=== PATIENT | female | born 1955 | race Caucasian/White ===

== ENCOUNTER → 2018-07-29 | Day surgery (SDC) | payer MEDICAID | LOC: FIMAGING 08:20 | PROVIDERS: ATTEND Nurse Practitioner | PROC: 02HV33Z Insertion of Infusion Device into Superior Vena Cava, Percutaneous Approach (ICD-10-PCS; principal; 2018-07-29) | DX: C23 Malignant neoplasm of gallbladder (principal); C78.1 Secondary malignant neoplasm of mediastinum; C79.51 Secondary malignant neoplasm of bone | CPT/HCPCS: 36569; 77001; C1751 ==

== ENCOUNTER 2018-08-01 12:25 | Inpatient (IN) | payer MEDICAID ==
--- NOTE | 2018-08-01 13:16 | EDPHY ---
H & P Stated Complaint: Faisal admits [facility] for tx GB cancer;chronic BLE edema;lasix dc 'd Time Seen by Provider: 08/01/18 13:16 HPI/ROS: HPI CHIEF COMPLAINT: Worsening anasarca. HISTORY OF PRESENT ILLNESS: Patient is 62-year-old female, presents emergency room progressively worsening shortness of breath, bilateral lower extremity swelling, and abdominal swelling. Patient recently diagnosed with retaining fluids. She was recently at [facility] for what appears she states his right-sided heart failure. Addition she states her kidneys are not working appropriately. [place] [facility] [place]bladder [place] is followed by Dr. Middleton. She was on Lasix but stopped that 2 days ago. Past Medical History: Pulmonary embolism, gallbladder cancer kidney disease on Lovenox. Past Surgical History: Cholecystectomy Social History: Denies drugs alcohol tobacco. Family History: Noncontributory ROS REVIEW OF SYSTEMS: 10 Systems were reviewed and negative with the exception of the elements mentioned in the history of present illness. Exam Constitutional nontoxic triage nursing summary reviewed, vital signs reviewed, awake/alert. Eyes normal conjunctivae and sclera, EOMI, PERRLA. HENT normal inspection, atraumatic, moist mucus membranes, no epistaxis, neck supple/ no meningismus, no raccoon eyes. Respiratory clear to auscultation bilaterally, normal breath sounds, no respiratory distress, no wheezing. Cardiovascular rate normal, regular rhythm, no murmur, no edema, distal pulses normal. Gastrointestinal anasarca on abdomen soft, non-tender, no rebound, no guarding , normal bowel sounds, no distension, no pulsatile mass. Genitourinary no CVA tenderness. Musculoskeletal bilateral lower extremity significant pitting edema, anasarca no midline vertebral tenderness, full range of motion, no calf swelling, no tenderness of extremities, no meningismus, good pulses, neurovascularly intact. Skin pink, warm, & dry, no rash, skin atraumatic. Neurologic awake, alert and oriented x 3, AAOx3, moves all 4 extremities equally, motor intact, sensory intact, CN II-XII intact, normal cerebellar, normal vision, normal speech. Psychiatric normal mood/affect. Heme/Lymph/Immune no lymphadenopathy. Differential Diagnosis: Includes but is not limited to in a particular order renal failure, peripheral edema, volume overload, anasarca, heart failure Medical Decision Making: Plan for this patient IV establishment hold IV fluids , check electrolytes, check kidney function, additionally will admit to the hospital for anasarca. Re-evaluation: Blood work reviewed low sodium 123, additionally creatinine 2.2, additionally elevated BNP. EKG interpretation by me on record in [employer] system. Impression time of EK, sinus tach 118 left atrial enlargement, T-wave abnormality [address] in [address]VL[address] Sp[address] with [address]. Chatman agrees to admit. Patient blood work reviewed shows volume overload, elevated BNP, elevated creatinine, low sodium. Chest x-ray concerning for left lower lobe pneumonia no evidence of pulmonary edema. Source: Patient - Personal History Current Tetanus Diphtheria and Acellular Pertussis (TDAP): Yes - Medical/Surgical History Hx Cardiac Disease: Yes Other PMH: Ca GB. CHF. hyponatremia. chronic lower extremity edema - Social History Smoking Status: Never smoked Constitutional: Initial Vital Signs Temperature (C) 36.8 C 08/01/18 12:26 Heart Rate 121 H 08/01/18 12:26 Respiratory Rate 18 08/01/18 12:26 Blood Pressure 104/89 H 08/01/18 12:26 O2 Sat (%) 96 08/01/18 12:26 O2 Delivery Mode Room Air Allergies/Adverse Reactions: Sulfa (Sulfonamide Antibiotics) Allergy (Severe, Verified 08/01/18 12:35) "My body shuts down" Home Medications: Medication Instructions Recorded Cyclobenzaprine [Flexeril 10 MG 10 mg PO 08/01/18 (*)] Enoxaparin [Lovenox 80 MG (*)] 80 mg SQ Q12H 08/01/18 OLANZapine [ZyPREXA 2.5 mg (*)] 2.5 mg PO 08/01/18 oxyCODONE IR [Oxycodone Ir (*)] 5 mg PO 08/01/18 Medical Decision Making - Diagnostics Imaging Results: Imaging Impressions Chest X-Ray 08/01/18 13:24 Impression: 1. Left lower lobe pneumonia. 2. No congestive heart failure. 3. Recommend follow-up until clear. - Data Points Laboratory Results: Laboratory Results 08/01/18 13:40 08/01/18 13:40 08/01/18 08/01/18 08/01/18 13:49 13:40 13:40 WBC RBC Hgb Hct MCV MCH MCHC RDW Plt Count MPV Neut % (Auto) Lymph % (Auto) Dixie % (Auto) Eos % (Auto) Baso % (Auto) Nucleat RBC Rel Count Absolute Neuts (auto) Absolute Lymphs (auto) Absolute Monos (auto) Absolute Eos (auto) Absolute Basos (auto) Absolute Nucleated RBC Immature Gran % Seg Neutrophils % Band Neutrophils % Lymphocytes % Monocytes % Eosinophils % Basophils % Metamyelocytes % Myelocytes % Promyelocytes % Blast Cells % Immature Gran # Absolute Seg Neuts Absolute Band Neuts Absolute Lymphocytes Absolute Monocytes Absolute Eosinophils Absolute Basophils Absolute Metamyelocyte Absolute Myelocytes Absolute Promyelocytes Absolute Plasma Cells Nucleated RBCs RBC/WBC/PLT Morphology Absolute Blast Cells Plasma Cells % Platelet Estimate PT 22.2 SEC H SEC (12.0-15.0) INR 1.94 H (0.83-1.16) APTT 52.2 SEC H SEC (23.0-38.0) Sodium 123 mEq/L L mEq/L (135-145) Potassium 4.5 mEq/L mEq/L (3.3-5.0) Chloride 93 mEq/L L mEq/L (97-110) Carbon Dioxide 20 mEq/l L mEq/l (22-31) Anion Gap 10 mEq/L mEq/L (8-16) BUN 49 mg/dL H mg/dL (7-23) Creatinine 2.2 mg/dL H mg/dL (0.6-1.0) Estimated GFR 23 Glucose 87 mg/dL mg/dL (70-100) Calcium 7.7 mg/dL L mg/dL (8.5-10.4) Magnesium 2.7 mg/dL H mg/dL (1.6-2.3) Total Bilirubin 0.9 mg/dL mg/dL (0.1-1.4) Conjugated Bilirubin 0.5 mg/dL mg/dL (0.0-0.5) Unconjugated Bilirubin 0.4 mg/dL mg/dL (0.0-1.1) AST 106 IU/L H IU/L (14-46) ALT 60 IU/L H IU/L (9-52) Alkaline Phosphatase 585 IU/L H IU/L (38-126) POC Troponin I 0.02 ng/mL ng/mL (0.00-0.08) NT-Pro-B Natriuret Pep 1320 pg/mL H pg/mL (0-125) Total Protein 5.4 g/dL L g/dL (6.3-8.2) Albumin 2.5 g/dL L g/dL (3.5-5.0) Lipase 277 IU/L IU/L (23-300) 08/01/18 13:40 WBC 8.53 10^3/uL 10^3/uL (3.80-9.50) RBC 4.53 10^6/uL 10^6/uL (4.18-5.33) Hgb 12.6 g/dL g/dL (12.6-16.3) Hct 38.6 % % (38.0-47.0) MCV 85.2 fL fL (81.5-99.8) MCH 27.8 pg L pg (27.9-34.1) MCHC 32.6 g/dL g/dL (32.4-36.7) RDW 16.0 % H % (11.5-15.2) Plt Count 283 10^3/uL 10^3/uL (150-400) MPV 7.8 fL L fL (8.7-11.7) Neut % (Auto) Not Reported Lymph % (Auto) Not Reported Dixie % (Auto) Not Reported Eos % (Auto) Not Reported Baso % (Auto) Not Reported Nucleat RBC Rel Count Not Reported Absolute Neuts (auto) Not Reported Absolute Lymphs (auto) Not Reported Absolute Monos (auto) Not Reported Absolute Eos (auto) Not Reported Absolute Basos (auto) Not Reported Absolute Nucleated RBC Not Reported Immature Gran % Not Reported Seg Neutrophils % 97.0 % % Band Neutrophils % 1.0 % % Lymphocytes % 1.0 % % Monocytes % 1.0 % % Eosinophils % 0.0 % % Basophils % 0.0 % % Metamyelocytes % 0.0 % % Myelocytes % 0.0 % % Promyelocytes % 0.0 % % Blast Cells % 0.0 % % Immature Gran # Not Reported Absolute Seg Neuts 8.27 10^/uL H 10^/uL (1.70-6.50) Absolute Band Neuts 0.09 10^3/uL 10^3/uL (0.00-0.70) Absolute Lymphocytes 0.09 10^3/uL L 10^3/uL (1.00-3.00) Absolute Monocytes 0.09 10^3/uL L 10^3/uL (0.30-0.80) Absolute Eosinophils 0.00 10^3/uL L 10^3/uL (0.03-0.40) Absolute Basophils 0.00 10^3/uL L 10^3/uL (0.02-0.10) Absolute Metamyelocyte 0.00 10^3/mL 10^3/mL (0.00-0.00) Absolute Myelocytes 0.00 10^3/mL 10^3/mL (0.00-0.00) Absolute Promyelocytes 0.00 10^3/uL 10^3/uL (0.00-0.00) Absolute Plasma Cells 0.00 10^3/uL 10^3/uL (0.00-0.00) Nucleated RBCs 0 /100 WBC /100 WBC (0-0) RBC/WBC/PLT Morphology NORMAL (NORMAL) Absolute Blast Cells 0.00 10^3/uL 10^3/uL (0.00-0.00) Plasma Cells % 0.0 % % Platelet Estimate ADEQUATE (ADEQ) PT INR APTT Sodium Potassium Chloride Carbon Dioxide Anion Gap BUN Creatinine Estimated GFR Glucose Calcium Magnesium Total Bilirubin Conjugated Bilirubin Unconjugated Bilirubin AST ALT Alkaline Phosphatase POC Troponin I NT-Pro-B Natriuret Pep Total Protein Albumin Lipase Medications Given: Discontinued Medications Fentanyl (Sublimaze) 50 mcg IVP EDNOW ONE Stop: 08/01/18 14:11 Last Admin: 08/01/18 14:13 Dose: 50 mcg Point of Care Test Results: Chemistry 08/01/18 13:49 POC Troponin I 0.02 ng/mL ng/mL (0.00-0.08) Departure - Departure Disposition: [facility] Inpatient Acute Clinical Impression: Volume overload, Anasarca, Left lower lobe pneumonia Condition: Fair Referrals: NONE *PRIMARY CARE P,. [Primary Care Provider] - As per Instructions
[2018-08-01 13:47] LABS: PLATELET COUNT 283 10^3/uL (150-400)
[2018-08-01 13:56] LABS: INR 1.94 (0.83-1.16); PROTIME(PATIENT) 22.2 SEC (12.0-15.0)
[2018-08-01] MEDS ORDERED: fentaNYL 100 MCG/2 ML INJ IVP ONE (14:10)
[2018-08-01] MEDS ORDERED: ACETAMINOPHEN 325 MG TAB PO PRN (16:02)
[2018-08-01] MEDS ORDERED: ONDANSETRON DISINTEGRATING 4 MG TAB PO PRN (16:02)
[2018-08-01] MEDS ORDERED: ONDANSETRON 4 MG/2 ML VIAL IVP PRN (16:02)
[2018-08-01] MEDS ORDERED: HYDROCODONE/APAP 5/325 TAB PO PRN (16:02)
[2018-08-01] MEDS ORDERED: HYDROmorphONE/DILAUDID 1 MG/ML INJ IVP PRN (16:02)
[2018-08-01] MEDS ORDERED: DOCUSATE SODIUM 100 MG CAP PO PRN (16:07)
[2018-08-01] MEDS ORDERED: oxyCODONE IR 5 MG TAB PO PRN (16:07)
[2018-08-01] MEDS ORDERED: ALBUMIN 25% 200 ML IV ONE (17:00)
[2018-08-01] MEDS: oxyCODONE IR 5 MG TAB PO PRN ×2 (17:21→23:14)
[2018-08-01] MEDS: PROMETHAZINE HCL 25 MG/ML INJ IVP PRN (17:21)
--- NOTE | 2018-08-01 18:41 | PDGENHP ---
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 Patient has been hospitalized multiple times in the past 2 months at [facility], including last week for similar sxs as she is presenting with currently. She was initially diagnosed with cholangiocarcinoma following a lap megan for presumed cholecystitis. Shortly after that surgery she was hospitalized for PE. Apparently she was discharged home on xarelto but when she was unable to afford the medication, she was told by her surgeon she could simply go on an aspirin for further management of her PE. She was diagnosed with a second PE a month later by her oncologist and at that time started on enoxaparin. Shortly after diagnosis of the second PE she began having issues with increased swelling in her lower extremities and was diagnosed with presumed right heart failure/cor pulmonale. She did have an echocardiogram in the last week at [facility] that was significant for preserved EF and LVF, apparently they were unable to assess RVSP /PAP and the full report was not available in [facility]. She was started on diuresis but was having issues with elevations in her creatinine even on relatively low doses of diuretics and so was being maintained on every other day lasix. She notes that she has concerns in that she continues to have swelling and pitting all the way to her abdomen, she feels so distended in her abdomen that she is having a hard time eating. She is very weak and even has a hard time walking to the bathroom and sitting on the toilet and does not feel safe at home. She has had multiple hospitalizations recently and each time feels better in the hospital but within hours gets worse and feels she has to go back to the hospital. She is followed by DR. Middleton at [facility] and recently began chemo with gemcitabine and cisplatin which she does not think has made things much worse. History Information - Allergies/Home Medication List Allergies/Adverse Reactions: ondansetron [From Zofran] Allergy (Severe, Verified 08/01/18 15:44) Vomiting Sulfa (Sulfonamide Antibiotics) Allergy (Severe, Verified 08/01/18 12:35) "My body shuts down" Home Medications: Acetaminophen [Tylenol ES 500 mg (*)] 500 - 1,000 mg PO BID PRN 08/01/18 [Last Taken 07/31/18] Cyclobenzaprine [Flexeril 10 MG (*)] 10 mg PO TID PRN 08/01/18 [Last Taken 07/30] Docusate Sodium [Colace 100 MG (*)] 100 mg PO DAILY PRN 08/01/18 [Last Taken 07/10] Enoxaparin [Lovenox 80 MG (*)] 80 mg SQ 10,08/01/18 [Last Taken 08/01/18 10: 00] Furosemide [Lasix 20 MG (*)] 20 mg PO Q48H 08/01/18 [Last Taken 07/30/18] Potassium Chloride [Klor-Con 10] 10 meq PO DAILY 08/01/18 [Last Taken 07/30/18] Simethicone [Gas-X] 125 mg PO Q6 PRN 08/01/18 [Last Taken 07/31/18] oxyCODONE HCL [Oxycodone HCl] 1 tab PO Q4 PRN 08/01/18 [Last Taken 08/01/18 10: 00] I have personally reviewed and updated: family history, medical history, social history, surgical history - Past Medical History cancer (cholangiocarcinoma, has had biliary obstruction), hypertension, pulmonary embolism Additional medical history: nocturnal hypoxia - Surgical History Reports: cholecystectomy Additional surgical history: biliary stent placement. removal of large ovarian cyst. tonsillectomy. wrist surgery - Family History Positive for: non-pertinent - Social History Smoking Status: Never smoked Alcohol Use: Rarely Drug Use: Marijuana Review of Systems Review of Systems: ROS: 10pt was reviewed & negative except for what was stated in HPI & below Physical Exam Physical Exam: Temp Pulse Resp BP Pulse Ox 36.8 C 121 H 16 106/69 95 08/01/18 16:11 08/01/18 16:26 08/01/18 16:26 08/01/18 16:26 08/01/18 16:26 Constitutional: no apparent distress, chronically ill appearing, uncomfortable Eyes: PERRL, anicteric sclera Ears, Nose, Mouth, Throat: moist mucous membranes, hearing normal Cardiovascular: regular rate and rhythym, no murmur, rub, or gallop, edema (3+ pitting to abdomen) Respiratory: no respiratory distress, no rales or rhonchi, reduced air movement (at bases) Gastrointestinal: normoactive bowel sounds, tenderness, No guarding, No rebound Genitourinary: no bladder tenderness Skin: warm, normal color Musculoskeletal: full muscle strength Neurologic: AAOx3 Psychiatric: interacting appropriately, not anxious, not encephalopathic Lab Data & Imaging Review 08/01/18 13:40 08/01/18 13:40 WBC 8.53 10^3/uL (3.80-9.50) 08/01/18 13:40 RBC 4.53 10^6/uL (4.18-5.33) 08/01/18 13:40 Hgb 12.6 g/dL (12.6-16.3) 08/01/18 13:40 Hct 38.6 % (38.0-47.0) 08/01/18 13:40 MCV 85.2 fL (81.5-99.8) 08/01/18 13:40 MCH 27.8 pg (27.9-34.1) L 08/01/18 13:40 MCHC 32.6 g/dL (32.4-36.7) 08/01/18 13:40 RDW 16.0 % (11.5-15.2) H 08/01/18 13:40 Plt Count 283 10^3/uL (150-400) 08/01/18 13:40 MPV 7.8 fL (8.7-11.7) L 08/01/18 13:40 Neut % (Auto) Not Reported 08/01/18 13:40 Lymph % (Auto) Not Reported 08/01/18 13:40 Woodruff % (Auto) Not Reported 08/01/18 13:40 Eos % (Auto) Not Reported 08/01/18 13:40 Baso % (Auto) Not Reported 08/01/18 13:40 Nucleat RBC Rel Count Not Reported 08/01/18 13:40 Absolute Neuts (auto) Not Reported 08/01/18 13:40 Absolute Lymphs (auto) Not Reported 08/01/18 13:40 Absolute Monos (auto) Not Reported 08/01/18 13:40 Absolute Eos (auto) Not Reported 08/01/18 13:40 Absolute Basos (auto) Not Reported 08/01/18 13:40 Absolute Nucleated RBC Not Reported 08/01/18 13:40 Immature Gran % Not Reported 08/01/18 13:40 Seg Neutrophils % 97.0 % 08/01/18 13:40 Band Neutrophils % 1.0 % 08/01/18 13:40 Lymphocytes % 1.0 % 08/01/18 13:40 Monocytes % 1.0 % 08/01/18 13:40 Eosinophils % 0.0 % 08/01/18 13:40 Basophils % 0.0 % 08/01/18 13:40 Metamyelocytes % 0.0 % 08/01/18 13:40 Myelocytes % 0.0 % 08/01/18 13:40 Promyelocytes % 0.0 % 08/01/18 13:40 Blast Cells % 0.0 % 08/01/18 13:40 Immature Gran # Not Reported 08/01/18 13:40 Absolute Seg Neuts 8.27 10^/uL (1.70-6.50) H 08/01/18 13:40 Absolute Band Neuts 0.09 10^3/uL (0.00-0.70) 08/01/18 13:40 Absolute Lymphocytes 0.09 10^3/uL (1.00-3.00) L 08/01/18 13:40 Absolute Monocytes 0.09 10^3/uL (0.30-0.80) L 08/01/18 13:40 Absolute Eosinophils 0.00 10^3/uL (0.03-0.40) L 08/01/18 13:40 Absolute Basophils 0.00 10^3/uL (0.02-0.10) L 08/01/18 13:40 Absolute Metamyelocyte 0.00 10^3/mL (0.00-0.00) 08/01/18 13:40 Absolute Myelocytes 0.00 10^3/mL (0.00-0.00) 08/01/18 13:40 Absolute Promyelocytes 0.00 10^3/uL (0.00-0.00) 08/01/18 13:40 Absolute Plasma Cells 0.00 10^3/uL (0.00-0.00) 08/01/18 13:40 Nucleated RBCs 0 /100 WBC (0-0) 08/01/18 13:40 RBC/WBC/PLT Morphology NORMAL (NORMAL) 08/01/18 13:40 Absolute Blast Cells 0.00 10^3/uL (0.00-0.00) 08/01/18 13:40 Plasma Cells % 0.0 % 08/01/18 13:40 Platelet Estimate ADEQUATE (ADEQ) 08/01/18 13:40 PT 22.2 SEC (12.0-15.0) H 08/01/18 13:40 INR 1.94 (0.83-1.16) H 08/01/18 13:40 APTT 52.2 SEC (23.0-38.0) H 08/01/18 13:40 Sodium 123 mEq/L (135-145) L 08/01/18 13:40 Potassium 4.5 mEq/L (3.3-5.0) 08/01/18 13:40 Chloride 93 mEq/L (97-110) L 08/01/18 13:40 Carbon Dioxide 20 mEq/l (22-31) L 08/01/18 13:40 Anion Gap 10 mEq/L (8-16) 08/01/18 13:40 BUN 49 mg/dL (7-23) H 08/01/18 13:40 Creatinine 2.2 mg/dL (0.6-1.0) H 08/01/18 13:40 Estimated GFR 23 08/01/18 13:40 Glucose 87 mg/dL (70-100) 08/01/18 13:40 Calcium 7.7 mg/dL (8.5-10.4) L 08/01/18 13:40 Magnesium 2.7 mg/dL (1.6-2.3) H 08/01/18 13:40 Total Bilirubin 0.9 mg/dL (0.1-1.4) 08/01/18 13:40 Conjugated Bilirubin 0.5 mg/dL (0.0-0.5) 08/01/18 13:40 Unconjugated Bilirubin 0.4 mg/dL (0.0-1.1) 08/01/18 13:40 AST 106 IU/L (14-46) H 08/01/18 13:40 ALT 60 IU/L (9-52) H 08/01/18 13:40 Alkaline Phosphatase 585 IU/L (38-126) H 08/01/18 13:40 POC Troponin I 0.02 ng/mL (0.00-0.08) 08/01/18 13:49 NT-Pro-B Natriuret Pep 1320 pg/mL (0-125) H 08/01/18 13:40 Total Protein 5.4 g/dL (6.3-8.2) L 08/01/18 13:40 Albumin 2.5 g/dL (3.5-5.0) L 08/01/18 13:40 Lipase 277 IU/L (23-300) 08/01/18 13:40 Visualized and Interpreted Chest x-ray results: Yes Chest X-Ray results: infiltrate (LLL pna) Visualized and Interpreted EKG results: Yes EKG Interpretation: Positive for: other EKG additional interpertation: sinus tach Assessment & Plan Assessment: Volume overload (Acute) Anasarca (Acute) Left lower lobe pneumonia (Acute) 62 yo F with PMH of recently diagnosed cholangiocarcinoma admitted with anasarca and pna # ansarca: likely multifactorial but suspect large component of right sided heart failure/cor pulmonale as well as hypoalbuminemia. Diuresis has been challenging as patient likely very pre load dependent in setting of presumed phtn. Given KIARRA as next, will give albumin tonight and request cardiology consultation for further eval of right sided chf and challenging diuresis. Will get US to eval for ascites, if significant ascites present paracentesis in am # kiarra: with recent creatinine of 0.8 at outside hospital, patient was only on lasix 20 q.o.d. at home and per records prior efforts with diuresis also challenging with resultant rapid KIARRA, as next. Will monitor i/o's, bladder scan , follow creatinine, urine lytes pending # presumed cor pulmonale: again outside echo reportedly unable to eval RVSP/PAP however physical exam most c/w right sided heart failure, patient has not had cardiology evaluation up until this point and is requesting they be involved to rule out other contributing cardiac issues. Presumed phtn due to recurrent PE ( first one improperly treated) as well as hx of nocturnal hypoxia and query dacia/ ohs. Patient has not had ischemic w/u in the past however. # PE: will continue tx dose lovenox # hyponatremia: presumed hypervolemic hyponatremia, will get urine osms/urine na , albumin overnight # elevated LFTs: alk phos has trended down from earlier, transaminases remain mildly elevated, bili normal: patient with hx of biliary obstruction related to cholangiocarcinoma with biliary stent placed, will continue to trend # cholangiocarincoma: recently started on chemotherapy, diagnosed in May, have requested oncology to consult in am # generalized weakness: PT/OT to eval, given multiple recurrent hospitalizations in past couple of months may need to consider SNF if not improving # FC # IP status, patient will require > 48 hours stay for eval/mgmt of above Patient new to my care. Old records reviewed and summarized as above, care plan reviewed with ER doctor, further hx obtained from patients son present at bedside.
[2018-08-01] MEDS: ENOXAPARIN 80 MG/0.8 ML SYR SC SCH (21:15)
[2018-08-02] MEDS: oxyCODONE IR 5 MG TAB PO PRN ×2 (05:25→22:05)
[2018-08-02 05:52] LABS: PLATELET COUNT 201 10^3/uL (150-400)
[2018-08-02] MEDS: ENOXAPARIN 80 MG/0.8 ML SYR SC SCH ×2 (09:28→22:04)
[2018-08-02] MEDS ORDERED: HYDROmorphone HCL 0.5 MG/0.5 ML SYR IVP PRN (09:30)
--- NOTE | 2018-08-02 09:34 | PDCONSULT ---
Barber [employer] Manager Note: Oncology consultation note Requesting service: Hospitalist Requesting attending:Elías Reason for consultation: Metastatic cholangiocarcinoma Outpatient oncologist: Argelia Middleton History of present illness: Opal is a very pleasant 62-year-old female with history of metastatic cholangiocarcinoma who was admitted to the hospital for symptoms of abdominal pain and worsening lower extremity edema. She presents with significant abdominal pain and swelling of her lower extremities which has been ongoing for her but has slowly worsened especially in the last few days. She denies any fevers or sputum production. On presentation it was noted that she had acute renal failure. She has known history of hydronephrosis. Her creatinine prior to initiation chemotherapy was in the 1.5 range. On presentation here was 2.0. She was given cycle 1 day 1 of cisplatin and gemcitabine on 07/29/2018. She denies any bleeding symptoms suggest melena, hematochezia or hematuria. Of note , she also has a history of pulmonary embolism which was initially treated with Xarelto. She did not have insurance coverage and then was treated with aspirin for a week. She eventually has been on Lovenox which she self administered without any difficulties. Past medical history Hypertension Cholangiocarcinoma Hydronephrosis History of pulmonary embolism Past surgical history Cholecystectomy 06/12/2018 Ovarian cyst removal 816 Social history She is currently . She was working and social media editor. She currently is not working. She has no tobacco use. She has no alcohol use. Family history Maternal cousin with ovarian cancer. She has 3 sons. She believes her mother had leukemia. Medications Outpatient and inpatient medications were reviewed. Allergies: Zofran and sulfa ROS: A 12 point ROS was obtained and was otherwise negative unless stated in HPI. Physical examination Vitals: Reviewed. General: Pleasant female conversant appears in no acute distress HEENT: Dry mucous membranes, OP S clear extraocular movements are intact. Pulmonary: Clear on auscultation Cardiovascular: Regular rate and rhythm no murmurs gallops or rubs Abdomen: Soft nontender nondistended bowel sounds are present. Neuro: Moving all extremities equally. Motor and sensation grossly intact. MSK: 3+ edema of the lower extremities extending up to the hips. Skin: No skin lesions Psych: Answers questions appropriately Labs: WBC 5.75 10^3/uL (3.80-9.50) 08/02/18 05:30 RBC 3.47 10^6/uL (4.18-5.33) L 08/02/18 05:30 Hgb 9.7 g/dL (12.6-16.3) L 08/02/18 05:30 Hct 29.9 % (38.0-47.0) L 08/02/18 05:30 MCV 86.2 fL (81.5-99.8) 08/02/18 05:30 MCH 28.0 pg (27.9-34.1) 08/02/18 05:30 MCHC 32.4 g/dL (32.4-36.7) 08/02/18 05:30 RDW 15.9 % (11.5-15.2) H 08/02/18 05:30 Plt Count 201 10^3/uL (150-400) 08/02/18 05:30 MPV 7.7 fL (8.7-11.7) L 08/02/18 05:30 Neut % (Auto) 93.4 % (39.3-74.2) H 08/02/18 05:30 Lymph % (Auto) 4.7 % (15.0-45.0) L 08/02/18 05:30 Gordon % (Auto) 1.2 % (4.5-13.0) L 08/02/18 05:30 Eos % (Auto) 0.3 % (0.6-7.6) L 08/02/18 05:30 Baso % (Auto) 0.2 % (0.3-1.7) L 08/02/18 05:30 Nucleat RBC Rel Count 0.0 % (0.0-0.2) 08/02/18 05:30 Absolute Neuts (auto) 5.37 10^3/uL (1.70-6.50) 08/02/18 05:30 Absolute Lymphs (auto) 0.27 10^3/uL (1.00-3.00) L 08/02/18 05:30 Absolute Monos (auto) 0.07 10^3/uL (0.30-0.80) L 08/02/18 05:30 Absolute Eos (auto) 0.02 10^3/uL (0.03-0.40) L 08/02/18 05:30 Absolute Basos (auto) 0.01 10^3/uL (0.02-0.10) L 08/02/18 05:30 Absolute Nucleated RBC 0.00 10^3/uL (0-0.01) 08/02/18 05:30 Immature Gran % 0.2 % (0.0-1.1) 08/02/18 05:30 Seg Neutrophils % 97.0 % 08/01/18 13:40 Band Neutrophils % 1.0 % 08/01/18 13:40 Lymphocytes % 1.0 % 08/01/18 13:40 Monocytes % 1.0 % 08/01/18 13:40 Eosinophils % 0.0 % 08/01/18 13:40 Basophils % 0.0 % 08/01/18 13:40 Metamyelocytes % 0.0 % 08/01/18 13:40 Myelocytes % 0.0 % 08/01/18 13:40 Promyelocytes % 0.0 % 08/01/18 13:40 Blast Cells % 0.0 % 08/01/18 13:40 Immature Gran # 0.01 10^3/uL (0.00-0.10) 08/02/18 05:30 Absolute Seg Neuts 8.27 10^/uL (1.70-6.50) H 08/01/18 13:40 Absolute Band Neuts 0.09 10^3/uL (0.00-0.70) 08/01/18 13:40 Absolute Lymphocytes 0.09 10^3/uL (1.00-3.00) L 08/01/18 13:40 Absolute Monocytes 0.09 10^3/uL (0.30-0.80) L 08/01/18 13:40 Absolute Eosinophils 0.00 10^3/uL (0.03-0.40) L 08/01/18 13:40 Absolute Basophils 0.00 10^3/uL (0.02-0.10) L 08/01/18 13:40 Absolute Metamyelocyte 0.00 10^3/mL (0.00-0.00) 08/01/18 13:40 Absolute Myelocytes 0.00 10^3/mL (0.00-0.00) 08/01/18 13:40 Absolute Promyelocytes 0.00 10^3/uL (0.00-0.00) 08/01/18 13:40 Absolute Plasma Cells 0.00 10^3/uL (0.00-0.00) 08/01/18 13:40 Nucleated RBCs 0 /100 WBC (0-0) 08/01/18 13:40 RBC/WBC/PLT Morphology TNP 08/02/18 05:30 Absolute Blast Cells 0.00 10^3/uL (0.00-0.00) 08/01/18 13:40 Plasma Cells % 0.0 % 08/01/18 13:40 Platelet Estimate TNP 08/02/18 05:30 PT 22.2 SEC (12.0-15.0) H 08/01/18 13:40 INR 1.94 (0.83-1.16) H 08/01/18 13:40 APTT 52.2 SEC (23.0-38.0) H 08/01/18 13:40 Sodium 125 mEq/L (135-145) L 08/02/18 05:30 Potassium 4.2 mEq/L (3.3-5.0) 08/02/18 05:30 Chloride 94 mEq/L (97-110) L 08/02/18 05:30 Carbon Dioxide 21 mEq/l (22-31) L 08/02/18 05:30 Anion Gap 10 mEq/L (8-16) 08/02/18 05:30 BUN 51 mg/dL (7-23) H 08/02/18 05:30 Creatinine 1.9 mg/dL (0.6-1.0) H 08/02/18 05:30 Estimated GFR 27 08/02/18 05:30 Glucose 54 mg/dL (70-100) L 08/02/18 05:30 Calcium 7.5 mg/dL (8.5-10.4) L 08/02/18 05:30 Magnesium 2.7 mg/dL (1.6-2.3) H 08/01/18 13:40 Total Bilirubin 0.8 mg/dL (0.1-1.4) 08/02/18 05:30 Conjugated Bilirubin 0.5 mg/dL (0.0-0.5) 08/01/18 13:40 Unconjugated Bilirubin 0.4 mg/dL (0.0-1.1) 08/01/18 13:40 AST 56 IU/L (14-46) H 08/02/18 05:30 ALT 45 IU/L (9-52) 08/02/18 05:30 Alkaline Phosphatase 347 IU/L (38-126) H 08/02/18 05:30 POC Troponin I 0.02 ng/mL (0.00-0.08) 08/01/18 13:49 NT-Pro-B Natriuret Pep 1320 pg/mL (0-125) H 08/01/18 13:40 Total Protein 5.0 g/dL (6.3-8.2) L 08/02/18 05:30 Albumin 2.6 g/dL (3.5-5.0) L 08/02/18 05:30 Lipase 277 IU/L (23-300) 08/01/18 13:40 Urine Osmolality 401 mosmo/kg (300-900) 08/01/18 21:10 Ur Random Urea Nitrogn Cancelled 08/01/18 21:10 Assessment and plan: Opal is a very pleasant 62-year-old female with history of metastatic cholangiocarcinoma who was admitted for worsening lower extremity edema. 1. Metastatic cholangiocarcinoma: She has metastasis to the bone, liver, and also to non regional lymph nodes including supraclavicular retroperitoneal mediastinal lymph nodes. She received her cycle 07/29/2018. She had dose reduction to her Cisplatin given her GFR. She has good understanding of her diagnosis alongside prognosis. She understands the treatment intent is palliative. She also had a MSI testing that is pending to see if she would be a candidate for immunotherapy. She is followed by Dr. Mitzi Middleton as an outpatient. 2. Acute kidney injury: Prior to initiating chemotherapy her creatinine is 1.5. She has history of hydronephrosis as well. Her kidney injury could be multifactorial including renal injury from Cisplatin, hydronephrosis, alongside cardiorenal syndrome given her profound volume overload. 3. Pulmonary embolism: She currently is receiving Lovenox. Will need to monitor her GFR well in therapy. 4. Anemia: I am unsure if this is the lab air given her previous hemoglobins were in the 12 range. This would be a rapid onset if it were associated with chemotherapy. I have recommended repeat CBC today. 5. Possible left lower lobe pneumonia: She is without fever. Her counts are stable. She is currently receiving antibiotics. All questions were answered. Opal voiced understanding with the plain and was appreciative of our care.
[2018-08-02] MEDS ORDERED: BUMETANIDE 1 MG/4 ML VIAL IVP ONE (11:34)
--- NOTE | 2018-08-02 12:09 | WOCRNPDOC ---
WOCRN Advanced Assessment Note - Skin Integrity Problem, Advanced Assess Right Buttock Pressure Injury Dressing Type: Open to Air Exudate Amount: Minimal Exudate Characteristic(s): Serosanguinous Wound Bed Constitution: Red/[place] - Non Granular Tissue (100%) Site Measurement - Head-to-Toe Length X Width X Depth (cm): 1x0.5x0.1 Pressure Injury Stage: Stage 2 Pressure Injury Present on Admit: Yes Skin Integrity Problem Comment: Wound care will sign off. Please reconsult prn wound not improving or getting worse over the course of the next week. Education with pateint about need for repositioning. Left Upper Medial Thigh Pressure Injury Dressing Type: Open to Air Exudate Amount: Scant Exudate Characteristic(s): Serosanguinous Site Measurement - Head-to-Toe Length X Width X Depth (cm): 10x5x0.1 Pressure Injury Stage: Stage 2, Documentation Nurse Related Pressure Injury (Briefs that were too tight at home.) Pressure Injury Present on Admit: Yes Skin Integrity Problem Comment: Multiple stage 2 pressure injury areas on bilateral upper inner thighs, from briefs at home that were too tight. They are in different stages of healing. Some are almost fully epithelized, others are still in the inflamatory stage. No concerns as all are healing appropriately. Will supply a different cream (clear zinc) so wounds can be easily visualized. AMARILYS Mcneil in room for care. Wound care will sign off. Patient reports that she now has larger briefs and the problem is no longer an issue. Right Upper Medial Thigh Pressure Injury Dressing Type: Open to Air Exudate Amount: None Wound Bed Constitution: Scab Site Measurement - Head-to-Toe Length X Width X Depth (cm): 7x4x0.1 Pressure Injury Stage: Stage 2, Documentation Nurse Related Pressure Injury (from briefs at home. ) Pressure Injury Present on Admit: Yes Skin Integrity Problem Comment: Multiple open areas in different stages of healing. No concerns. Treat with cream. Keep briefs off.
--- NOTE | 2018-08-02 12:35 | HOSPPROG ---
Hospitalist Progress Note Assessment/Plan: 62 yo F with PMH of recently diagnosed cholangiocarcinoma admitted with anasarca and pna # Ansarca - Likely multifactorial but suspect large component of right sided heart failure /cor pulmonale as well as hypoalbuminemia. - Diuresis has been challenging as patient likely very pre load dependent in setting of presumed phtn. - S/p albumin last night. - Will obtain repeat TTE today and then request cardiology consultation for further eval of right sided chf and challenging diuresis. - Abdominal US negative for ascites - Will give 1 mg Bumex IV this morning and evaluate response, redose as needed # KIARRA - Recent creatinine of 0.8 at outside hospital - Patient was on lasix 20 q.o.d. at home and per records prior efforts with diuresis also challenging with resultant rapid KIARRA, - Will give 1 mg IV Bumex as above - Will monitor i/o's, bladder scan, follow creatinine - Urine lytes are pending #Bacterial PNA - CXR shows LLL PNA - Continue on Levaquin for 7 day course, monitor QTc # Presumed cor pulmonale - Again outside echo reportedly unable to eval RVSP/PAP however physical exam most c/w right sided heart failure - Repeat TTE as above # PE - Will continue tx dose lovenox # Hyponatremia - Presumed hypervolemic hyponatremia - Urine osms/urine na pending - Continue to monitor Na daily # Elevated LFTs - Alk phos has trended down from earlier, transaminases remain mildly elevated, bili normal - Patient with hx of biliary obstruction related to cholangiocarcinoma with biliary stent placed - Will continue to trend # Metastatic Cholangiocarincoma - Recently started on chemotherapy, diagnosed in May - Oncology consulted this AM, follows with Dr. Mitzi Middleton as OP # Generalized weakness - PT/OT to eval - Given multiple recurrent hospitalizations in past couple of months may need to consider SNF if not improving Dispo: Pending clinical course Subjective: Patient reports feeling nauseous with dry heaves this morning Objective: Vital Signs Temp Pulse Resp BP Pulse Ox 36.5 C 108 H 15 115/76 95 08/02/18 08:30 08/02/18 08:30 08/02/18 08:30 08/02/18 08:30 08/02/18 08:30 Laboratory Results 08/02/18 05:30 08/02/18 05:30 08/01/18 08/02/18 08/03/18 05:59 05:59 05:59 Intake Total 500 Output Total 225 Balance 275 PT 22.2 SEC (12.0-15.0) H 08/01/18 13:40 INR 1.94 (0.83-1.16) H 08/01/18 13:40 - Physical Exam Constitutional: chronically ill appearing, cachectic Eyes: PERRL Ears, Nose, Mouth, Throat: dry mucous membranes Cardiovascular: tachycardia Respiratory: no respiratory distress Gastrointestinal: soft, non-tender abdomen, distension, No ascites Genitourinary: no bladder tenderness Skin: warm Musculoskeletal: generalized weakness Neurologic: AAOx3 Psychiatric: interacting appropriately Lymph, Heme, Immunologic: No ecchymoses ICD10 Worksheet Patient Problems: Problems Problem Status Onset Anasarca Acute Left lower lobe pneumonia Acute Volume overload Acute
--- NOTE | 2018-08-02 13:25 | PDMN ---
Medical Necessity Medical necessity: Pt meets IP criteria per MD & MCG M-190; est los >2 mn for eval/tx of R-sided heart failure/presumed cor pulmonale w/ansarca, hypoalbuminemia, acute kidney injury, LLL pneumonia & generalized weakness; requiring further workup/monitoring, possible paracentesis, Cardiology/Oncology consults, IV albumin, IV abx & therapies; hx recent hospitalizations for lap megan w/cholangiocarcinoma & PEs on AC; per H&P & order 08/01/18
--- NOTE | 2018-08-02 15:00 | ASMTCMCOM ---
CM Note CM Note Notes: Patient seen in am rounds. She has multiple medical issues with metastatic cancer and renal failure. She was recently at [facility] and was to go home with hospice however [facility] does not serve [place]. She seems to have a good understanding of her disease and prognosis. Per Dr. Long we will make appropriate hospice referrals at this time. Patient would benefit from walker, toilet seat elevator and questionable bathing seat.CM to follow. Plan: Home with hospice of choice. Date Signed: 08/02/2018 03:00 PM Electronically Signed By:Nicole Sparks RN
[2018-08-02] MEDS: PROMETHAZINE HCL 25 MG/ML INJ IVP PRN (18:08)
--- NOTE | 2018-08-02 18:48 | ECHO ---
[email or web address] [address] [address] Main: [phone] Fax: Transthoracic Echocardiogram Name: KAREEM SPARROW MR#: [id number] Study Date: 08/02/2018 Study Time: 01:04 PM Date of : 1955 Age: 62 year(s) Height: 167.6 cm (66 in.) Weight: 93.44 kg (206 lb.) BSA: 2.03 m2 Gender: Female Examination: Echo Indication: lower extremity edema, concern for RHF Image Quality: Technically Difficult Contrast: Requested by: Jony Long BP: / Heart Rate: Rhythm: Indication: lower extremity edema, concern for RHF Procedure Staff Accountant Cost: Shante Garcia [facility] Reading Physician: Thomas Mcgrath MD Requesting Provider: Conclusions: Normal size left ventricle. Global hypercontractility of the left ventricle. EF is 64 %. No regional wall motion abnormality. Normal size right ventricle. There is no significant mitral valve regurgitation. There is no aortic valve regurgitation. There is no tricuspid valve regurgitation. Pulmonary artery pressure is not obtained due to inadequate TR jet. Small to moderate pericardial effusion. There is a pleural effusion. Measurements: Chambers Valvular Assessment AV/MV Valvular Assessment TV/PV Normal Normal Normal Name Value Range Name Value Range Name Value Range Ao Kiara (MM): 2.9 cm (2.2 cm-3.7 AV Vmax: 1.41 m/s (1 m/s-1.7 PV Vmax: 0.82 m/s (0.6 m/s-0.9 cm) m/s) m/s) IVSd (2D): 0.9 cm (0.6 cm-1.1 AV maxP mmHg ( - ) PV PGmax: 3 mmHg ( - ) cm) LVOT Vmax: 1.20 m/s (0.7 m/s-1.1 LVDd (2D): 3.4 cm (3.9 cm-5.3 m/s) cm) LIZANDRO (Vmax): 2.7 cm2 ( - ) LVDs (2D): 2.3 cm (2.1 cm-4 MV E Vmax: 0.56 m/s ( - ) cm) MV A Vmax: 0.87 m/s ( - ) LVPWd (2D): 1.0 cm ( - ) MV E/A: 0.64 ( - ) LVOTd 2.0 cm 2.0 cm mm LVEF (2D): 64 (>=54 %) RVDd(2D): 2.3 cm (1.9 cm-3.8 cmmm) Patient: KAREEM SPARROW Study Date: 08/02/2018 Page 1 of 2 01:04 PM Continued Measurements: Chambers Valvular Assessment AV/MV Name Value Name Value LADs Lon.0 cm MV E/E' Septal: 7.50 LA Area: 15.9 cm2 MV E/E' Lateral: 7.30 LA Volume: 47 ml LA Volume Index: 23.2 ml/m2 RA Area: 11.1 cm2 Additional Vessels Name Value Ao Ascendin.4 cm Findings: Left Ventricle: Normal size left ventricle. No LV hypertrophy. Global hypercontractility of the left ventricle. EF is 64 %. No regional wall motion abnormality. Grade 1 diastolic dysfunction (abnormal relaxation). Right Ventricle: Normal size right ventricle. Normal RV function. Left Atrium: The left atrium is normal in size. Right Atrium: The right atrium is normal in size. Mitral Valve: The mitral valve is normal in appearance and function. There is no significant mitral valve regurgitation. No mitral stenosis is present. Aortic Valve: Aortic valve is not well visualized. There is no aortic valve regurgitation. No aortic valve stenosis is present. Tricuspid Valve: The tricuspid valve is normal in appearance and function. There is no tricuspid valve regurgitation. Pulmonary artery pressure is not obtained due to inadequate TR jet. Pulmonic Valve: Pulmonary valve not well visualized. There is no pulmonic regurgitation seen. Aorta: Normal size aortic root measuring 2.9 cm. Normal size ascending aorta measuring 3.4 cm. Pericardium: Small to moderate pericardial effusion. There is a pleural effusion. (No Signature Object) Patient: KAREEM SPARROW Study Date: 08/02/2018 Page 2 of 2 01:04 PM [id number]
[2018-08-02] MEDS: CYCLOBENZAPRINE 10 MG TAB PO PRN (22:05)
[2018-08-03] MEDS: PROMETHAZINE HCL 25 MG/ML INJ IVP PRN ×3 (00:06→20:40)
[2018-08-03] MEDS: SIMETHICONE 80 MG TAB CHEW PO PRN (00:06)
[2018-08-03] MEDS: LORazepam 0.5 MG TAB PO PRN (00:15)
[2018-08-03] MEDS: oxyCODONE IR 5 MG TAB PO PRN ×2 (01:53→20:47)
[2018-08-03 06:48] LABS: PLATELET COUNT 265 10^3/uL (150-400)
--- NOTE | 2018-08-03 09:20 | PDCARCONS ---
Cardiology Consult Reason for Consult: Lower extremity edema. Chief Complaint: Lower extremity edema, dyspnea. Requesting Physician: Dr. Jony Long. History of Present Illness: 62-year-old female who was recently diagnosed with cholangiocarcinoma in May of this year. Apparently, that diagnosis was made at the time of a cholecystectomy. Currently she is being managed with palliative chemotherapy. She received her 1st dose of chemotherapy last . Additionally, she has had 2 previous episodes of pulmonary embolism. She is currently treated with systemic anticoagulation. She was hospitalized as recently as several weeks ago at [facility] apparently with similar complaints to those that she is experiencing currently. Apparently during that hospitalization she had a fairly extensive workup for her edema including an echocardiogram which was unremarkable. She states that she has had been experiencing lower extremity swelling now for about 6 weeks. She has had edema up to the mid thighs. She has not had orthopnea or PN D. She has also noted a slight increase in his sensation of abdominal fullness. She denies fever, chills and night sweats. She has not had any chest pain. Because of these complaints she was admitted to the hospital here. She had an echocardiogram performed. There is a separately detailed report on her current medical record. She notes that she really is not that active at the present time. She does ambulate around her house a little bit. History Information - Allergies/Home Medication List Allergies/Adverse Reactions: ondansetron [From Zofran] Allergy (Severe, Verified 08/01/18 15:44) Vomiting Sulfa (Sulfonamide Antibiotics) Allergy (Severe, Verified 08/01/18 12:35) "My body shuts down" Home Medications: Acetaminophen [Tylenol ES 500 mg (*)] 500 - 1,000 mg PO BID PRN 08/01/18 [Last Taken 07/31/18] Cyclobenzaprine [Flexeril 10 MG (*)] 10 mg PO TID PRN 08/01/18 [Last Taken 07/30] Docusate Sodium [Colace 100 MG (*)] 100 mg PO DAILY PRN 08/01/18 [Last Taken 07/10] Enoxaparin [Lovenox 80 MG (*)] 80 mg SQ ,08/01/18 [Last Taken 08/01/18 10: 00] Furosemide [Lasix 20 MG (*)] 20 mg PO Q48H 08/01/18 [Last Taken 07/30/18] Potassium Chloride [Klor-Con 10] 10 meq PO DAILY 08/01/18 [Last Taken 07/30/18] Simethicone [Gas-X] 125 mg PO Q6 PRN 08/01/18 [Last Taken 07/31/18] oxyCODONE HCL [Oxycodone HCl] 1 tab PO Q4 PRN 08/01/18 [Last Taken 08/01/18 10: 00] I have personally reviewed and updated: family history, medical history, social history, surgical history Past Medical History: Cholangiocarcinoma, hypertension, prior PE, nocturnal hypoxemia. - Surgical History Additional surgical history: Cholecystectomy, biliary stent placement, ovarian cystectomy, tonsillectomy, wrist surgery. - Family History Positive for: non-pertinent - Social History Smoking Status: Never smoked Alcohol Use: Rarely Drug Use: Marijuana Physical Exam Physical Exam: Temp Pulse Resp BP Pulse Ox 36.5 C 125 H 18 108/84 H 96 08/03/18 08:33 08/03/18 08:33 08/03/18 08:33 08/03/18 08:33 08/03/18 08:33 Constitutional: no apparent distress, appears nourished, not in pain Eyes: PERRL, anicteric sclera, EOMI Ears, Nose, Mouth, Throat: moist mucous membranes, hearing normal, ears appear normal, no oral mucosal ulcers Cardiovascular: regular rate and rhythym, no murmur, rub, or gallop, edema (1/2 inch pitting edema extending proximally to the mid thigh) Peripheral Pulses: 2+: carotid (R), carotid (L) Respiratory: no respiratory distress, no rales or rhonchi, clear to auscultation Gastrointestinal: normoactive bowel sounds, soft, non-tender abdomen, no palpable masses Genitourinary: no bladder fullness, no bladder tenderness Skin: warm, normal color, no rashes or abrasions, no fluctuance, no induration, No mottled Musculoskeletal: full muscle strength, no muscle tenderness, normal joint ROM, no joint effusions Psychiatric: interacting appropriately, not anxious, not encephalopathic, thought process linear Lymph, Heme, Immunologic: no cervical LAD, no supraclavicular LAD Lab and Imaging 08/03/18 05:40 08/03/18 05:40 WBC 5.79 10^3/uL (3.80-9.50) 08/03/18 05:40 RBC 3.88 10^6/uL (4.18-5.33) L 08/03/18 05:40 Hgb 10.9 g/dL (12.6-16.3) L 08/03/18 05:40 Hct 33.2 % (38.0-47.0) L 08/03/18 05:40 MCV 85.6 fL (81.5-99.8) 08/03/18 05:40 MCH 28.1 pg (27.9-34.1) 08/03/18 05:40 MCHC 32.8 g/dL (32.4-36.7) 08/03/18 05:40 RDW 16.1 % (11.5-15.2) H 08/03/18 05:40 Plt Count 265 10^3/uL (150-400) 08/03/18 05:40 MPV 7.9 fL (8.7-11.7) L 08/03/18 05:40 Neut % (Auto) 91.7 % (39.3-74.2) H 08/03/18 05:40 Lymph % (Auto) 6.6 % (15.0-45.0) L 08/03/18 05:40 Lassen % (Auto) 0.9 % (4.5-13.0) L 08/03/18 05:40 Eos % (Auto) 0.3 % (0.6-7.6) L 08/03/18 05:40 Baso % (Auto) 0.2 % (0.3-1.7) L 08/03/18 05:40 Nucleat RBC Rel Count 0.0 % (0.0-0.2) 08/03/18 05:40 Absolute Neuts (auto) 5.31 10^3/uL (1.70-6.50) 08/03/18 05:40 Absolute Lymphs (auto) 0.38 10^3/uL (1.00-3.00) L 08/03/18 05:40 Absolute Monos (auto) 0.05 10^3/uL (0.30-0.80) L 08/03/18 05:40 Absolute Eos (auto) 0.02 10^3/uL (0.03-0.40) L 08/03/18 05:40 Absolute Basos (auto) 0.01 10^3/uL (0.02-0.10) L 08/03/18 05:40 Absolute Nucleated RBC 0.00 10^3/uL (0-0.01) 08/03/18 05:40 Immature Gran % 0.3 % (0.0-1.1) 08/03/18 05:40 Seg Neutrophils % 97.0 % 08/01/18 13:40 Band Neutrophils % 1.0 % 08/01/18 13:40 Lymphocytes % 1.0 % 08/01/18 13:40 Monocytes % 1.0 % 08/01/18 13:40 Eosinophils % 0.0 % 08/01/18 13:40 Basophils % 0.0 % 08/01/18 13:40 Metamyelocytes % 0.0 % 08/01/18 13:40 Myelocytes % 0.0 % 08/01/18 13:40 Promyelocytes % 0.0 % 08/01/18 13:40 Blast Cells % 0.0 % 08/01/18 13:40 Immature Gran # 0.02 10^3/uL (0.00-0.10) 08/03/18 05:40 Absolute Seg Neuts 8.27 10^/uL (1.70-6.50) H 08/01/18 13:40 Absolute Band Neuts 0.09 10^3/uL (0.00-0.70) 08/01/18 13:40 Absolute Lymphocytes 0.09 10^3/uL (1.00-3.00) L 08/01/18 13:40 Absolute Monocytes 0.09 10^3/uL (0.30-0.80) L 08/01/18 13:40 Absolute Eosinophils 0.00 10^3/uL (0.03-0.40) L 08/01/18 13:40 Absolute Basophils 0.00 10^3/uL (0.02-0.10) L 08/01/18 13:40 Absolute Metamyelocyte 0.00 10^3/mL (0.00-0.00) 08/01/18 13:40 Absolute Myelocytes 0.00 10^3/mL (0.00-0.00) 08/01/18 13:40 Absolute Promyelocytes 0.00 10^3/uL (0.00-0.00) 08/01/18 13:40 Absolute Plasma Cells 0.00 10^3/uL (0.00-0.00) 08/01/18 13:40 Nucleated RBCs 0 /100 WBC (0-0) 08/01/18 13:40 RBC/WBC/PLT Morphology TNP 08/03/18 05:40 Atypical Lymphocytes 1+ H 08/03/18 05:40 Absolute Blast Cells 0.00 10^3/uL (0.00-0.00) 08/01/18 13:40 Plasma Cells % 0.0 % 08/01/18 13:40 Platelet Estimate TN 08/03/18 05:40 PT 22.2 SEC (12.0-15.0) H 08/01/18 13:40 INR 1.94 (0.83-1.16) H 08/01/18 13:40 APTT 52.2 SEC (23.0-38.0) H 08/01/18 13:40 Sodium 126 mEq/L (135-145) L 08/03/18 05:40 Potassium 4.4 mEq/L (3.3-5.0) 08/03/18 05:40 Chloride 95 mEq/L (97-110) L 08/03/18 05:40 Carbon Dioxide 21 mEq/l (22-31) L 08/03/18 05:40 Anion Gap 10 mEq/L (8-16) 08/03/18 05:40 BUN 50 mg/dL (7-23) H 08/03/18 05:40 Creatinine 1.7 mg/dL (0.6-1.0) H 08/03/18 05:40 Estimated GFR 31 08/03/18 05:40 Glucose 59 mg/dL (70-100) L 08/03/18 05:40 Calcium 7.6 mg/dL (8.5-10.4) L 08/03/18 05:40 Magnesium 2.7 mg/dL (1.6-2.3) H 08/01/18 13:40 Total Bilirubin 0.8 mg/dL (0.1-1.4) 08/02/18 05:30 Conjugated Bilirubin 0.5 mg/dL (0.0-0.5) 08/01/18 13:40 Unconjugated Bilirubin 0.4 mg/dL (0.0-1.1) 08/01/18 13:40 AST 56 IU/L (14-46) H 08/02/18 05:30 ALT 45 IU/L (9-52) 08/02/18 05:30 Alkaline Phosphatase 347 IU/L (38-126) H 08/02/18 05:30 POC Troponin I 0.02 ng/mL (0.00-0.08) 08/01/18 13:49 NT-Pro-B Natriuret Pep 1320 pg/mL (0-125) H 08/01/18 13:40 Total Protein 5.0 g/dL (6.3-8.2) L 08/02/18 05:30 Albumin 2.6 g/dL (3.5-5.0) L 08/02/18 05:30 Lipase 277 IU/L (23-300) 08/01/18 13:40 Urine Osmolality 401 mosmo/kg (300-900) 08/01/18 21:10 Ur Random Urea Nitrogn Cancelled 08/01/18 21:10 Visualized and Interpreted Chest x-ray results: Yes Chest X-ray Interpretation: other (Normal cardiac size, opacity in the left base which may represent infiltrate or effusion) Visualized and Interpreted imaging results: Yes Visualized and Interpreted EKG results: Yes EKG additional interpertation: Sinus tachycardia with nonspecific ST and T changes. Telemetry: Sinus tachycardia. Echocardiogram: See a full separately dictated report. A/P Assessment: 62-year-old female who, unfortunately, was recently diagnosed with cholangiocarcinoma. She has undergone a single round of chemotherapy. She has had 2 previous episodes of pulmonary thromboembolic disease. She currently presents with a 6 week course of progressive lower extremity edema. This is noted in the absence of jugular venous distension or pulmonary findings. Additionally, her brain atretic peptide is disproportionately low based on her clinical presentation. Her echocardiogram does not really suggest any right heart failure. Overall, I think that her edema is not on the basis of pulmonary hypertension or a a cardiac condition. I think her edema is likely multifactorial in the setting of her hypoalbuminemic state, history of metastatic cholangiocarcinoma, chronic renal insufficiency, sedentary lifestyle and previous DVT/PE. This was discussed with Dr. Long from the hospitalist service. I do not think that she requires any further cardiac testing or therapies. She may benefit from further workup to include imaging of the abdomen, imaging of the lower extremity venous system, TSH and potentially measurement of her urinary protein to evaluate for nephrosis. At this point we will sign off. Review of Systems Review of Systems: - Review of Systems Constitutional: see HPI EENTM: no symptoms reported Respiratory: see HPI Cardiac: see HPI Gastrointestinal/Abdominal: see HPI Genitourinary: no symptoms Musculoskelatal: no symptoms Skin: no symptoms Neurological: no symptoms Hematologic/Lymphatic: no symptoms reported Immunologic/allergic: no symptoms reported All Other Systems: Reviewed and Negative
[2018-08-03] MEDS: ENOXAPARIN 80 MG/0.8 ML SYR SC SCH ×2 (09:51→20:43)
[2018-08-03] MEDS ORDERED: BUMETANIDE 1 MG/4 ML VIAL IVP ONE (10:47)
--- NOTE | 2018-08-03 12:50 | HOSPPROG ---
Hospitalist Progress Note Assessment/Plan: 62 yo F with PMH of recently diagnosed cholangiocarcinoma admitted with anasarca and pna # Ansarca - Likely multifactorial but suspect large component of right sided heart failure /cor pulmonale as well as hypoalbuminemia. - Diuresis has been challenging as patient likely very pre load dependent in setting of presumed phtn. - S/p albumin last night. - TTE done on 08/02 which showed normal EF, mild diastolic dysfunction, patient seen by cardiology who do not believe this is related to cardiac issues - Abdominal US negative for ascites - Will give another 1 mg Bumex IV this morning and evaluate response, redose as needed, plan to transition to PO Bumex over next few days pending Creatinine and urine output # KIARRA - Recent creatinine of 0.8 at outside hospital - Patient was on lasix 20 q.o.d. at home and per records prior efforts with diuresis also challenging with resultant rapid KIARRA, - Will give 1 mg IV Bumex as above - Will monitor i/o's, bladder scan, follow creatinine, continues to downtrend, 1.7 this AM, 2.2 on admission #Bacterial PNA - CXR shows LLL PNA - Continue on Levaquin for 7 day course, monitor QTc #Positive Blood Cultures - Blood cultures from admission growing Coag Neg Staph and Gram + cocci in clusters - This may be 2/2 to contaminant, will repeat blood cultures today - Patient not presenting as bacteremia with no fevers, leukocytosis, will continue Levaquin for now, if repeat cultures remain positive plan to tailor abx # PE - Will continue tx dose lovenox # Hyponatremia - Presumed hypervolemic hyponatremia, continuing to improve, 126 today - Continue to monitor Na daily # Elevated LFTs - Alk phos has trended down from earlier, transaminases remain mildly elevated, bili normal - Patient with hx of biliary obstruction related to cholangiocarcinoma with biliary stent placed - Will continue to trend # Metastatic Cholangiocarincoma - Recently started on chemotherapy, diagnosed in May - Oncology consulted, follows with Dr. Mitzi Middleton as OP # Generalized weakness - PT/OT to eval - Given multiple recurrent hospitalizations in past couple of months may need to consider SNF if not improving Dispo: Pending clinical course, plan to transition to PO diuretics over next day or so, CM also working on enrolling in hospice Subjective: Patient reports voiding more often since Bumex given yesterday Objective: Vital Signs Temp Pulse Resp BP Pulse Ox 36.3 C 127 H 21 H 103/75 95 08/03/18 11:36 08/03/18 11:36 08/03/18 11:36 08/03/18 11:36 08/03/18 11:36 Microbiology 08/01/18 15:30 Blood Panel (PCR) - Final Blood Laboratory Results 08/03/18 05:40 08/03/18 05:40 08/02/18 08/03/18 08/04/18 05:59 05:59 05:59 Intake Total 500 525 Output Total 225 100 Balance 275 425 PT 22.2 SEC (12.0-15.0) H 08/01/18 13:40 INR 1.94 (0.83-1.16) H 08/01/18 13:40 - Physical Exam Constitutional: no apparent distress, chronically ill appearing Eyes: PERRL Ears, Nose, Mouth, Throat: dry mucous membranes Cardiovascular: tachycardia Respiratory: no respiratory distress Gastrointestinal: normoactive bowel sounds Genitourinary: no bladder fullness Skin: warm, erythema Musculoskeletal: generalized weakness Neurologic: AAOx3 Psychiatric: interacting appropriately ICD10 Worksheet Patient Problems: Problems Problem Status Onset Anasarca Acute Left lower lobe pneumonia Acute Volume overload Acute
[2018-08-03] MEDS: CYCLOBENZAPRINE 10 MG TAB PO PRN ×2 (14:05→20:39)
--- NOTE | 2018-08-03 14:41 | ASMTCMCOM ---
CM Note CM Note Notes: Dia from [facility] here to see patient: they've scheduled an informational session tomorrow 08/04 @ 1100 with patient, son, and DIL. Patient says that she has a comfortable bed and her son is working on getting her a walker and a toilet riser. I'm sure hospice can assist with DME, as well. Patient's physical address is [address] [place] [address], and we've provided [facility] with this information. Case Management will follow. Date Signed: 08/03/2018 02:40 PM Electronically Signed By:Sanjuana Moulton RN
--- NOTE | 2018-08-03 15:03 | SOAPPROG ---
SOAP Progress Note Assessment/Plan: Assessment: Opal is a very pleasant 62-year-old female with history of metastatic cholangiocarcinoma who was admitted for worsening edema. 1. Metastatic cholangiocarcinoma: She received cycle 1 day 1 of gemcitabine and cisplatin last week. She states that her left supraclavicular lymph node has improved in size. We discussed the chemotherapy is palliative and not curative. We discussed that the benefit of chemotherapy is modest with regard to survival benefit. She voiced her understanding of this and states that she would like to restart chemotherapy with Dr. Middleton next week. Of note, her pathology has been sent for MSI testing to see if she is a candidate for immunotherapy. I believe the result for this will be back by next week. 2. Hyponatremia: This is likely related to volume overload. She appears to be improving with diuresis. 3. Acute kidney injury: She had cisplatin exposure alongside chronic renal insufficiency at baseline prior to cisplatin. Her creatinine is improving with diuresis indicating a cardiorenal syndrome. 4. Venous thromboembolism: She currently is taking Lovenox at therapeutic dosing. All questions were answered. She voiced understanding the plan. Subjective: Overall Opal feels better today. She does feel that her legs have slightly improved. Her mucous membranes feel dry today. She is discussed advance care planning including possible hospice. Objective: Vital Signs Temp Pulse Resp BP Pulse Ox 36.3 C 127 H 21 H 103/75 95 08/03/18 11:36 08/03/18 11:36 08/03/18 11:36 08/03/18 11:36 08/03/18 11:36 Microbiology 08/01/18 15:30 Blood Panel (PCR) - Final Blood Laboratory Results 08/03/18 05:40 08/03/18 05:40 08/02/18 08/03/18 08/04/18 05:59 05:59 05:59 Intake Total 500 525 150 Output Total 225 100 200 Balance 275 425 -50 PT 22.2 SEC (12.0-15.0) H 08/01/18 13:40 INR 1.94 (0.83-1.16) H 08/01/18 13:40 Physical examination General: Pleasant-appearing female appears in no acute distress conversant accompanied by her son. HEENT: Opiates clear extraocular movements are intact mucous membranes are dry Pulmonary: Clear to auscultation bilaterally Cardiovascular: Regular rate and rhythm tachycardia noted no murmurs gallops or rubs Abdomen: Soft nontender nondistended bowel sounds are present no hepatosplenomegaly Lymph nodes: Left supraclavicular lymph node slightly painful. Extremities: 2+ pitting edema to the thighs. ICD10 Worksheet Patient Problems: Problems Problem Status Onset Anasarca Acute Left lower lobe pneumonia Acute Volume overload Acute
[2018-08-04] MEDS: SIMETHICONE 80 MG TAB CHEW PO PRN (00:36)
[2018-08-04] MEDS: LORazepam 0.5 MG TAB PO PRN (00:36)
[2018-08-04] MEDS: PROMETHAZINE HCL 25 MG/ML INJ IVP PRN ×3 (04:29→20:12)
[2018-08-04] MEDS: oxyCODONE IR 5 MG TAB PO PRN ×2 (04:29→20:17)
[2018-08-04] MEDS: ENOXAPARIN 80 MG/0.8 ML SYR SC SCH ×2 (10:03→20:37)
--- NOTE | 2018-08-04 14:17 | HOSPPROG ---
Hospitalist Progress Note Assessment/Plan: 62 yo F with PMH of recently diagnosed metastatic cholangiocarcinoma admitted with anasarca and pna. # LE edema / anasarca - per cardiology, not likely cardiac process. Note low albumin, likely 3rd spacing, possible component of CKD, also consider DVT clot burden since she was off AC for some time versus obstructive process in pelvis. TTE done on 08/02- normal EF, mild diastolic dysfunction. Wt down 2 kg in past 2 days with IV Bumex. Abdominal US negative for ascites. - will give albumin / bumex today - check LE u/s to ensure no significant clot burden - consider CT abd/pelvis to r/o obstructive process ([facility] to see if recent CT done) # KIARRA - baseline Cr nl, 0.8. Cr 2.2 --> 1.7 with diuresis - cont close monitoring with diuresis # Possible PNA - CXR shows poss LLL PNA, pers reviewed/interp - Continue Levaquin for short course, monitor QTc # Coag neg staph bacteremia in 2/2 BCxs - afebrile, no leukocytosis or signs of sepsis. Discussed with ID. - 1 g IV Vancomycin now - ID to consult in am - Echo neg for vegetation # PE - cont Lovenox # Hyponatremia - Presumed hypervolemic hyponatremia, continuing to improve, 122 --> 127 with diuresis - oral bumex today as above # Elevated LFTs - Alk phos has trended down from earlier, transaminases remain mildly elevated, bili normal. +hx of biliary obstruction related to cholangiocarcinoma with biliary stent placed - continue to trend # Metastatic Cholangiocarincoma - mets to liver, bone. Recently started on palliative chemotherapy with gemcitabine and cisplatin, diagnosed in May - Oncology following # Generalized weakness - PT/OT Dispo: home with home care vs snf rehab. CM following, cont PT/OT evals. Neal palliative involved, may transition to hospice Subjective: Pt doing a little better today. She took an Ensure which went well. Denies pain. No fevers/chills. No CP or SOB. No abdominal pain. Notes some back spasms. Objective: Vital Signs Temp Pulse Resp BP Pulse Ox 36.7 C 121 H 16 110/73 98 08/04/18 09:12 08/04/18 09:12 08/04/18 09:12 08/04/18 09:12 08/04/18 09:12 Microbiology 08/01/18 15:30 Blood Panel (PCR) - Final Blood Laboratory Results 08/03/18 05:40 08/04/18 05:00 08/03/18 08/04/18 08/05/18 05:59 05:59 05:59 Intake Total 525 550 Output Total 100 700 Balance 425 -150 PT 22.2 SEC (12.0-15.0) H 08/01/18 13:40 INR 1.94 (0.83-1.16) H 08/01/18 13:40 - Physical Exam Constitutional: no apparent distress Eyes: PERRL Ears, Nose, Mouth, Throat: moist mucous membranes Cardiovascular: regular rate and rhythym Respiratory: no respiratory distress, clear to auscultation Gastrointestinal: other (soft, nd, +TTP LLQ, no r/r/g, +BS) Skin: warm Musculoskeletal: full muscle strength, other (4+ b/l LE pitting edema with anasarca) Neurologic: AAOx3 Psychiatric: interacting appropriately ICD10 Worksheet Patient Problems: Problems Problem Status Onset Anasarca Acute Left lower lobe pneumonia Acute Volume overload Acute
[2018-08-04] MEDS ORDERED: ALBUMIN 25% 100 ML IV ONE (14:39)
[2018-08-04] MEDS ORDERED: BUMETANIDE 1 MG TAB PO ONE (14:40)
[2018-08-04] MEDS ORDERED: VANCOMYCIN HCL/NORMAL SALINE 250 ML IV ONE (14:50)
[2018-08-04] MEDS ORDERED: VANCOMYCIN 1.25 GM in NS 250 ML IV ONE (16:00)
--- NOTE | 2018-08-04 18:51 | ASMTCMCOM ---
CM Note CM Note Notes: Patient care reviewed in interdisciplinary rounds today. Opal and her family were meeting palliative care Pino Lobo and Hospice [facility] to have discussion regarding options for hospice and palliative care. See note. Per Dia, she will be back in tomorrow to see patient again. CM to follow. Plan Home with Hospice vs palliative care when medically cleared for discharge, Date Signed: 08/04/2018 03:06 PM Electronically Signed By:Nicole Sparks RN
[2018-08-04] MEDS: CYCLOBENZAPRINE 10 MG TAB PO PRN (20:18)
--- NOTE | 2018-08-04 20:23 | GCON ---
INFECTIOUS DISEASE CONSULTATION DATE OF CONSULTATION: 08/04/2018 REFERRING PHYSICIAN: Elis Mejia MD REASON FOR CONSULTATION: Bacteremia. HISTORY OF PRESENT ILLNESS: Patient is a 62-year-old female with a recent diagnosis of metastatic ch olangiocarcinoma, whom I am asked to see in consultation for blood culture showing growth of coagulas e-negative Staphylococcus. The patient was admitted to [facility] on 08/02/2018, with anasarca. The patient was noted to have a left lower lobe infiltrate on chest x-ray, prompting blood cultures. She did not have preceding fevers or chills. She did not note cough, increased shortness of breath, chest pain, or significant sputum production. She had a PICC line placed in the right up per extremity on 07/29/2018. She has not noted pain, swelling, or drainage. last week, she was started on chemotherapy with cisplatin and gemcitabine. The patient also was noted to have an e levated creatinine at time of presentation. The blood cultures which were obtained at the time of ad mission now are showing 2 of 2 sets with Staphylococcus epidermidis, as well as Staphylococcus capiti s in 1 of the 2 sets. Growth is present in all 4 bottles with cultures being positive in less than 2 4 hours. The patient was given a single dose of vancomycin earlier today based on blood culture find ings. She has received levofloxacin empirically for pneumonia since time of admission. Her primary complaint currently is ongoing anasarca. Cardiology consultation has been obtained and does not feel that anasarca is cardiac in etiology. Given the above findings, I am now asked to assist in her christine oing management. PAST MEDICAL HISTORY: Metastatic cholangiocarcinoma as above, pulmonary embolism associated with cho langiocarcinoma, hypertension. PAST SURGICAL HISTORY: Cholecystectomy, ovarian cyst removal in her teenage years. CURRENT MEDICATIONS: Vancomycin 1.25 g IV x1, levofloxacin 750 mg IV q.48 hours, Flexeril 10 mg oral ly 3 times per day as needed, Lovenox 80 mg subcu twice daily, Dilaudid as needed, OxyIR as needed. ALLERGIES: Sulfonamides. SOCIAL HISTORY: Patient does not smoke. She does not drink alcohol. She recently began using medic al marijuana. No pets at home. No recent travel or unusual exposures. FAMILY HISTORY: Cousin with ovarian cancer. REVIEW OF SYSTEMS: Outside that noted in the HPI, remainder of 10-system review is unremarkable. PHYSICAL EXAMINATION: VITAL SIGNS: Temperature 36.5, heart rate 125, respiratory rate 19, blood pre ssure 108/80, oxygen saturation 99% on room air. GENERAL: Patient is well nourished, well developed , in no acute distress. She appears nontoxic. HEENT: There is no scleral icterus, conjunctival inj ection, or conjunctival petechiae. Oropharynx shows moist mucous membranes. Dentition in fair repai r. There is no nasal discharge. There is no tenderness over the sinuses. NECK: Supple without pal pable lymphadenopathy or thyromegaly. CHEST: There are decreased breath sounds at both bases. The respiratory effort is normal. CARDIOVASCULAR: Tachycardic without murmurs, gallops, or rubs. ABDOM EN: Obese, nontender, nondistended. Well-healed surgical scars present. Bowel sounds are present. MUSCULOSKELETAL: There is anasarca of the lower extremities to the groin. PICC line is present in the right upper extremity. No erythema, edema, or drainage. SKIN: No rashes present. No stigmata of endocarditis. The skin is warm and dry to touch. NEUROLOGIC: Patient is alert and interacts robel ropriately with examiner. Cranial nerves 2-12 are grossly intact. Sensation is grossly intact. Mus miladys tone and bulk are normal. LABORATORY DATA: White blood cell count 5.8, hematocrit 33.2, platelets 265, neutrophils 92%. Serum creatinine 1.7, albumin 2.6, AST 56, ALT 45, bilirubin 0.8, alkaline phosphatase 347. INR 1.9. Blo od cultures from 08/01/2018 showing 2 of 2 sets with Staphylococcus epidermidis and 1 of 2 sets with Staphylococcus capitis. Blood cultures on 08/03/2018 are pending. Chest x-ray shows left lower lobe infiltrate. Echocardiogram shows a small to moderate pericardial effusion and presence of a pleural effusion with normal ejection fraction. Abdominal ultrasound showed no evidence of ascites. IMPRESSION: 1. Staphylococcus epidermidis bacteremia: Given growth in 2 of 2 sets with an indwelling PICC line and relatively rapid growth on both cultures. This is concerning for a true line infection. However , she did not have any other specific signs or symptoms of infection as would be typical for bacterem ia. Additionally, 1 of the cultures shows another species of coagulase-negative staphylococcus, whic h can be seen with contamination. She has repeat cultures pending which were obtained prior to patie nt receiving vancomycin. Given her clinical stability, I do not think PICC line requires removal unl ess blood cultures fail to clear. 2. Left lower lobe infiltrate: No clinical signs or symptoms of pneumonia. Query if this may be re lated to pleural effusion given her anasarca. Will repeat chest x-ray PA and lateral in a.m. as this may help further define. Will discontinue levofloxacin given no other findings to suggest pneumonia and would be ideal to avoid antibiotic exposure if not needed. RECOMMENDATIONS: 1. Random vancomycin level tomorrow to determine if additional vancomycin dosing necessary. If bact eremia appears to be true bacteremia, may consider completing therapy with daptomycin to avoid risk o f nephrotoxicity in the setting of baseline renal insufficiency. 2. Discontinue levofloxacin. 3. Chest x-ray, PA and lateral in a.m. 4. Follow up blood cultures obtained on 08/03/2018. Thank you for this consultation. We will continue to follow the patient with you. /[id number]/MODL
[2018-08-05] MEDS: oxyCODONE IR 5 MG TAB PO PRN ×2 (00:37→21:43)
[2018-08-05] MEDS: LORazepam 0.5 MG TAB PO PRN ×2 (00:37→21:44)
[2018-08-05] MEDS: SIMETHICONE 80 MG TAB CHEW PO PRN ×2 (00:38→20:01)
[2018-08-05] MEDS: ENOXAPARIN 80 MG/0.8 ML SYR SC SCH ×2 (10:58→21:41)
--- NOTE | 2018-08-05 11:11 | SOAPPROG ---
SOAP Progress Note Assessment/Plan: Assessment: Opal is a very pleasant 62-year-old female with history of metastatic cholangiocarcinoma who was admitted for worsening edema. 1. Metastatic cholangiocarcinoma: She received cycle 1 day 1 of gemcitabine and cisplatin last week. She states that her left supraclavicular lymph node has improved in size. We discussed the chemotherapy is palliative and not curative. We discussed that the benefit of chemotherapy is modest with regard to survival benefit. She voiced her understanding of this and states that she would like to restart chemotherapy with Dr. Middleton next week. Of note, her pathology has been sent for MSI testing to see if she is a candidate for immunotherapy. I believe the result for this will be back by next week. 2. Hyponatremia: This is likely related to volume overload. She appears to be improving with diuresis. 3. Acute kidney injury: She had cisplatin exposure alongside chronic renal insufficiency at baseline prior to cisplatin. Her creatinine is improving with diuresis indicating a cardiorenal syndrome. 4. Venous thromboembolism: She currently is taking Lovenox at therapeutic dosing. 5. Staph epidermidis bacteremia: She had 2 blood cultures came back with Staph epi. She had repeat blood cultures drawn that her negative. She has infectious disease following. My preference would be removal of the PICC line as I would prefer to place a new PICC line for further chemotherapy as an outpatient. Will follow up with Infectious Diseases and primary hospitalist. All questions were answered. She voiced understanding the plan. 08/05/18 11:10 Subjective: Opal reports feeling well overall. She has no chest pain or shortness of breath. Her only complaint is a continued lower extremity edema. Otherwise she feels well. Objective: Vital Signs Temp Pulse Resp BP Pulse Ox 36.4 C 120 H 12 108/77 99 08/05/18 10:00 08/05/18 10:00 08/05/18 10:00 08/05/18 10:00 08/05/18 10:00 Microbiology 08/01/18 15:30 Blood Culture - Final Blood Staphylococcus Epidermidis Blood Panel (PCR) - Final Laboratory Results 08/03/18 05:40 08/05/18 05:30 08/04/18 08/05/18 08/06/18 05:59 05:59 05:59 Intake Total 550 440 Output Total 700 450 Balance -150 -10 PT 22.2 SEC (12.0-15.0) H 08/01/18 13:40 INR 1.94 (0.83-1.16) H 08/01/18 13:40 Physical examination: General: Pleasant-appearing female appears in no acute distress HEENT: Dry mucous membranes opiates clear extraocular movements are intact Lymph: Left supraclavicular lymph node is soft nontender Cardiovascular: Regular rate and rhythm Pulmonary: Clear to auscultation Abdomen: Soft nontender nondistended bowel sounds are present Extremities: 2+ pitting edema up to the thigh, left PICC line is in place ICD10 Worksheet Patient Problems: Problems Problem Status Onset Anasarca Acute Left lower lobe pneumonia Acute Volume overload Acute
--- NOTE | 2018-08-05 11:42 | PCMIDPN ---
Assessment/Plan: 1. Coagulase-negative staphylococcal bacteremia associated with PICC line: Patient cleared her bacteremia rapidly. Agree that PICC line can stay in for now, and Dr. Middleton, the patient's primary oncologist can determine whether or not she wants it pulled before next round of chemotherapy. Vancomycin random level to be obtained later today, but patient will likely go home on Q 48 hr daptomycin to complete 10 days of therapy. Check CK in preparation for daptomycin. Subjective: Patient in good spirits. No complaints. Objective: Vancomycin 1.25 g x1 given yesterday No fevers Vital Signs Temp Pulse Resp BP Pulse Ox 36.4 C 120 H 12 108/77 99 08/05/18 10:00 08/05/18 10:00 08/05/18 10:00 08/05/18 10:00 08/05/18 10:00 Microbiology 08/01/18 15:30 Blood Culture - Final Blood Staphylococcus Epidermidis Blood Panel (PCR) - Final Laboratory Results 08/03/18 05:40 08/05/18 05:30 08/04/18 08/05/18 08/06/18 05:59 05:59 05:59 Intake Total 550 440 Output Total 700 450 Balance -150 -10 Blood cultures August 03 no growth so far August 01 blood cultures 4/4 bottles with Staph epidermidis and 1/4 bottles with Staph capitis Vancomycin BHARAT of 2 with Staph epidermidis - Physical Exam General Appearance: alert, no apparent distress Extremities: other (PICC line right upper extremity looks fine with no erythema or skin changes at the base. No arm swelling or tenderness.) ICD10 Worksheet Patient Problems: Problems Problem Status Onset Anasarca Acute Left lower lobe pneumonia Acute Volume overload Acute
[2018-08-05 13:00] LABS: CREATINE KINASE < 20 IU/L (0-156)
--- NOTE | 2018-08-05 14:51 | ASMTCMCOM ---
CM Note CM Note Notes: Patient seen in interdisciplinary rounds. Per ID likely to treat Blood Cultures with daptomycin. Referal to Junior. Patient revisited by palliative care and she declines at this time. CM to follow. Plan: Home with [facility] and IV infusions at this point. Date Signed: 08/05/2018 02:22 PM Electronically Signed By:Nicole Sparks RN
--- NOTE | 2018-08-05 15:04 | HOSPPROG ---
Hospitalist Progress Note Assessment/Plan: 62 yo F with PMH of recently diagnosed metastatic cholangiocarcinoma admitted with anasarca # LE edema / anasarca - per cardiology, not likely cardiac process. Note low albumin, likely 3rd spacing, possible component of CKD, also consider DVT clot burden since she was off AC for some time versus obstructive process in pelvis. TTE done on 08/02- normal EF, mild diastolic dysfunction. Wt down 2 kg in past few days. Abdominal US negative for ascites. LE u/s neg for DVT. - continue bumex, consider increasing dose if not diuresing net negative and Cr remains stable - consider CT abd/pelvis to r/o obstructive process (obtain records from [facility] to see if recent CT done) # KIARRA - baseline Cr prior to initiation of chemo was 1.5 per onc. Cr 2.2 --> 1.7 with diuresis - check ua, urine Na, urine Cr to calculate FeNa - cont close monitoring with diuresis # Possible PNA - repeat CXR pers reviewed /interp, I don't appreciate a significant infiltrate. Radiology read notes stable consolidation - Levaquin d/c'd per ID - f/u imaging as outpt # Coag neg staph bacteremia in 2/2 BCxs - afebrile, no leukocytosis or signs of sepsis. Discussed with Dr. Storey, ID. S/P Vanc yesterday. - Will likely complete 10 days of daptomycin - PICC line to remain in place, defer pulling PICC to outpt oncology prior to next chemo - Echo neg for vegetation # PE - cont Lovenox # Hyponatremia - Presumed hypervolemic hyponatremia, continuing to improve, 122 --> 127 with diuresis - oral bumex today as above # Elevated LFTs - Alk phos has trended down from earlier, transaminases remain mildly elevated, bili normal. +hx of biliary obstruction related to cholangiocarcinoma with biliary stent placed - continue to trend # Metastatic Cholangiocarincoma - mets to liver, bone. Recently started on palliative chemotherapy with gemcitabine and cisplatin, diagnosed in May - Oncology following # Generalized weakness - PT/OT Dispo: home with home care vs snf rehab. CM following, cont PT/OT evals. Neal palliative involved, may transition to hospice Subjective: Pt feels ok today. Intermittent nausea. Pain controlled. No fevers/chills or rigors. Taking better po, still low intake. Ambulated in halls today. Objective: Vital Signs Temp Pulse Resp BP Pulse Ox 36.6 C 131 H 18 105/85 H 96 08/05/18 12:00 08/05/18 12:00 08/05/18 12:00 08/05/18 12:00 08/05/18 12:00 Microbiology 08/01/18 15:30 Blood Culture - Final Blood Staphylococcus Epidermidis Blood Panel (PCR) - Final Laboratory Results 08/03/18 05:40 08/05/18 05:30 08/04/18 08/05/18 08/06/18 05:59 05:59 05:59 Intake Total 550 440 Output Total 700 450 200 Balance -150 -10 -200 PT 22.2 SEC (12.0-15.0) H 08/01/18 13:40 INR 1.94 (0.83-1.16) H 08/01/18 13:40 - Physical Exam Constitutional: no apparent distress Eyes: PERRL Ears, Nose, Mouth, Throat: moist mucous membranes Cardiovascular: regular rate and rhythym Respiratory: no respiratory distress, clear to auscultation Gastrointestinal: normoactive bowel sounds, soft, non-tender abdomen Skin: warm Musculoskeletal: other (3+ b/l LE pitting edema) Neurologic: AAOx3 Psychiatric: interacting appropriately ICD10 Worksheet Patient Problems: Problems Problem Status Onset Anasarca Acute Left lower lobe pneumonia Acute Volume overload Acute
--- NOTE | 2018-08-05 15:08 | WOCRNPDOC ---
HUNG Advanced Assessment Note - Skin Integrity Problem, Advanced Assess Left Buttock Pressure Injury Dressing Type: Allevyn Life Dressing Description: Clean/Dry, Intact Exudate Amount: Scant Exudate Color: Reddish/Yellow Exudate Characteristic(s): Serosanguinous Integumentary Issue Intervention: Visualized Under Dressing [place] Wound Tissue: Blanching, Intact Wound Bed Color: [place] Wound Edges: Well Defined Site Measurement - Head-to-Toe Length X Width X Depth (cm): 1x0.4x0.2 Pressure Injury Stage: Stage 2 Pressure Injury Present on Admit: No Skin Integrity Problem Comment: Patient's skin evaluated as part of the PIPP study today. It is noted that the patient was on a TAPS sheet but that the wedges were not in use and the patient was positioned on her back. Patient rolled to her right side with assist. [address]. It is noted that wound care saw this patient early in her hospitalization and documented the presence of a Stage 2 on her right buttock. This wound is located on her left buttock, and appears to be a new, hospital acquired Stage 2 pressure injury. Offloading measures are already in place. Wound care will not continue to follow this wound. Please reconsult if wound worsens.
[2018-08-05] MEDS: BUMETANIDE 1 MG TAB PO SCH (15:52)
[2018-08-05] MEDS ORDERED: VANCOMYCIN 1.25 GM in NS 250 ML IV ONE (19:30)
[2018-08-05] MEDS ORDERED: VANCOMYCIN 1.25 GM in D5W 250 ML IV ONE (19:30)
[2018-08-05] MEDS: PROMETHAZINE HCL 25 MG/ML INJ IVP PRN (20:01)
[2018-08-05] MEDS: CYCLOBENZAPRINE 10 MG TAB PO PRN (21:44)
[2018-08-06] MEDS: oxyCODONE IR 5 MG TAB PO PRN ×2 (02:20→21:39)
[2018-08-06] MEDS: PROMETHAZINE HCL 25 MG/ML INJ IVP PRN ×2 (02:25→17:49)
[2018-08-06] MEDS: ENOXAPARIN 80 MG/0.8 ML SYR SC SCH ×2 (09:24→21:32)
[2018-08-06] MEDS: BUMETANIDE 1 MG TAB PO SCH ×2 (09:24→15:41)
--- NOTE | 2018-08-06 10:52 | SOAPPROG ---
SOAP Progress Note Assessment/Plan: Assessment: Opal is a very pleasant 62-year-old female with history of metastatic cholangiocarcinoma who was admitted for worsening edema. 1. Metastatic cholangiocarcinoma: She received cycle 1 day 1 of gemcitabine and cisplatin last week. She states that her left supraclavicular lymph node has improved in size. We discussed the chemotherapy is palliative and not curative. We discussed that the benefit of chemotherapy is modest with regard to survival benefit. She voiced her understanding of this and states that she would like to restart chemotherapy with Dr. Middleton next week. Of note, her pathology has been sent for MSI testing to see if she is a candidate for immunotherapy. 2. Hyponatremia: This is likely related to volume overload. Her sodium is 128 today. 3. Acute kidney injury: She had cisplatin exposure alongside chronic renal insufficiency at baseline prior to cisplatin. Her creatinine improved significantly with diuresis indicating a component cardiorenal syndrome. 4. Venous thromboembolism: She currently is taking Lovenox at therapeutic dosing. 5. Staph epidermidis bacteremia: She had 2 blood cultures came back with Staph epi. She had repeat blood cultures drawn that her negative. She has infectious disease following. I would defer removal of the PICC line to Dr. Mitzi Middleton as an outpatient who is her primary oncologist. All questions were answered. She voiced understanding the plan. 08/06/18 10:51 Subjective: She continues to feel well today. Her edema slowly is improving. She has no fever chills or cough. She has otherwise no complaints today. Objective: Vital Signs Temp Pulse Resp BP Pulse Ox 36.6 C 115 H 18 118/83 H 93 08/06/18 08:23 08/06/18 08:23 08/06/18 08:23 08/06/18 08:23 08/06/18 08:23 Laboratory Results 08/03/18 05:40 08/06/18 06:03 08/05/18 08/06/18 08/07/18 05:59 05:59 05:59 Intake Total 440 975 Output Total 450 400 Balance -10 575 PT 22.2 SEC (12.0-15.0) H 08/01/18 13:40 INR 1.94 (0.83-1.16) H 08/01/18 13:40 Physical examination: Temp Pulse Resp BP Pulse Ox 36.6 C 115 H 18 118/83 H 93 08/06/18 08:23 08/06/18 08:23 08/06/18 08:23 08/06/18 08:23 08/06/18 08:23 O2 (L/minute) 1 General: Pleasant-appearing female appears in no acute distress HEENT: Opiates clear extraocular movements are intact Lymph: 2-3 cm left supraclavicular lymph node that is soft Cardiovascular: Regular rate and rhythm Pulmonary: Clear to auscultation bilaterally Abdomen: Soft nontender nondistended bowel sounds are present Extremities: 2+ edema up to the thighs, right upper extremity PICC is noted ICD10 Worksheet Patient Problems: Problems Problem Status Onset Anasarca Acute Left lower lobe pneumonia Acute Volume overload Acute
--- NOTE | 2018-08-06 11:53 | PCMIDPN ---
Assessment/Plan: 1. Coagulase-negative staphylococcal bacteremia associated with PICC line: For now, given that the patient will be here over the weekend and is tolerating vancomycin, will continue vancomycin as is. Her diuretic dose was increased, so will need to keep a closer eye on her kidney function. Pharmacy will order a vancomycin trough this afternoon, and we will re-dose if necessary. She needs vancomycin through August 12. Again, according to IDSA guidelines with coagulase-negative staphylococcal line-related bacteremia and rapid clearance of bacteremia, the line can stay in. 08/06/18 11:48 Subjective: In good spirits today in spite of everything. Smiling. Her 2 adult children are in the room. Objective: Vancomycin by level, stop date August 12 Vital Signs Temp Pulse Resp BP Pulse Ox 36.6 C 115 H 18 100/82 H 93 08/06/18 11:18 08/06/18 11:18 08/06/18 11:18 08/06/18 11:18 08/06/18 11:18 Laboratory Results 08/03/18 05:40 08/06/18 06:03 08/05/18 08/06/18 08/07/18 05:59 05:59 05:59 Intake Total 440 975 Output Total 450 400 Balance -10 575 Blood culture August 03 are negative - Physical Exam General Appearance: no apparent distress EENT: pharynx normal, No thrush Extremities: other (PICC line right upper extremity looks fine) Skin: No rash ICD10 Worksheet Patient Problems: Problems Problem Status Onset Anasarca Acute Left lower lobe pneumonia Acute Volume overload Acute
[2018-08-06] MEDS ORDERED: PROTOCOL POTASSIUM 1 DOSE MISC PRN (11:55)
[2018-08-06] MEDS: POTASSIUM CL 10 MEQ TAB PO SCH (13:25)
--- NOTE | 2018-08-06 13:28 | HOSPPROG ---
Hospitalist Progress Note Assessment/Plan: 62 yo F with PMH of recently diagnosed metastatic cholangiocarcinoma admitted with anasarca # LE edema / anasarca - per cardiology, not likely cardiac process. Note low albumin, likely 3rd spacing, possible component of CKD versus obstructive process in pelvis. UA neg for proteinuria. TTE done on 08/02- normal EF, mild diastolic dysfunction. Wt down 2 kg in past few days, but has plateaud since changing from IV to po bumex. Abdominal US negative for ascites. LE u/s neg for DVT. - increase bumex to 1 mg bid with close monitoring of renal function, I&O's and daily weights - dietary consult to assist with protein goals, will repeat Albumin today - consider CT abd/pelvis to r/o obstructive process (trying to obtain records from [facility] for recent CT report) # KIARRA - baseline Cr prior to initiation of chemo was 1.5 per onc. Cr 2.2 --> 1.7 with diuresis. FeNa is 0.05%, suggesting she is intravascularly dry. - cont close monitoring with diuresis # Possible PNA - repeat CXR pers reviewed /interp, I don't appreciate a significant infiltrate. Radiology read notes stable consolidation - Levaquin d/c'd per ID - f/u imaging as outpt # Coag neg staph bacteremia in 2/2 BCxs - afebrile, no leukocytosis or signs of sepsis. Discussed with Dr. Storey, ID. S/P Vanc yesterday. - Continue Vancomycin through 08/12 per ID - PICC line to remain in place, defer pulling PICC to outpt oncology prior to next chemo - Echo neg for vegetation # PE - cont Lovenox # Hyponatremia - Presumed hypervolemic hyponatremia, continuing to improve, 122 --> 127 with diuresis. She needs more protein. - oral bumex increased today as above - needs more protein and solute, will add salt tabs # Elevated LFTs - Alk phos has trended down from earlier, transaminases remain mildly elevated, bili normal. +hx of biliary obstruction related to cholangiocarcinoma with biliary stent placed - continue to trend # Metastatic Cholangiocarincoma - mets to liver, bone. Recently started on palliative chemotherapy with gemcitabine and cisplatin, diagnosed in May - Oncology following # Generalized weakness - PT/OT # Malnutrition - dietary consult requested Dispo: likely home with [facility] in 1-2 days. CM following, cont PT/OT evals. Neal palliative involved, may transition to hospice Subjective: Pt is tearful today, sad about her family being sad. No pain. Still poor uop. No fevers/chill, N/V. No pain. Little oral intake, but trying to take ensure tid. Objective: Vital Signs Temp Pulse Resp BP Pulse Ox 36.6 C 115 H 18 100/82 H 93 08/06/18 11:18 08/06/18 11:18 08/06/18 11:18 08/06/18 11:18 08/06/18 11:18 Laboratory Results 08/03/18 05:40 08/06/18 06:03 08/05/18 08/06/18 08/07/18 05:59 05:59 05:59 Intake Total 440 975 Output Total 450 400 Balance -10 575 PT 22.2 SEC (12.0-15.0) H 08/01/18 13:40 INR 1.94 (0.83-1.16) H 08/01/18 13:40 - Physical Exam Constitutional: no apparent distress Eyes: PERRL Ears, Nose, Mouth, Throat: moist mucous membranes Cardiovascular: regular rate and rhythym Respiratory: no respiratory distress, reduced air movement Gastrointestinal: normoactive bowel sounds, soft, non-tender abdomen Skin: warm Musculoskeletal: full muscle strength, other (3+ b/l LE pitting edema) Neurologic: AAOx3 Psychiatric: interacting appropriately ICD10 Worksheet Patient Problems: Problems Problem Status Onset Anasarca Acute Left lower lobe pneumonia Acute Volume overload Acute
[2018-08-06] MEDS ORDERED: ALBUMIN 25% 200 ML IV ONE (13:36)
--- NOTE | 2018-08-06 15:10 | ASMTCMCOM ---
CM Note CM Note Notes: Patient plan of care reviewed in interdisciplinary rounds. Slowly diuresing to preserve kidney function. She has poor intake and little output. Anasarca present. Son Wesley and DIL in room. Plan is to try to mobilize more fluid. Likely inpt next 2 days. Referral to [facility] as patient would benefit form HHC. Per patient and her son they would prefer palliative care at this time in addition to HHC. Continue IV antibiotics per ID. Continue therapies. Plan: HHC and infusion services at discharge with [facility] Palliative care in place. Date Signed: 08/06/2018 03:00 PM Electronically Signed By:Nicole Sparks RN
[2018-08-06] MEDS ORDERED: VANCOMYCIN 1.25 GM in NS 250 ML IV ONE (17:30)
[2018-08-06] MEDS: SODIUM CHLORIDE 1,000 MG TAB PO SCH (17:40)
[2018-08-06] MEDS ORDERED: BUMETANIDE 1 MG TAB PO SCH (21:00)
[2018-08-06] MEDS: LORazepam 0.5 MG TAB PO PRN (21:38)
[2018-08-07] MEDS: BUMETANIDE 1 MG TAB PO SCH (09:22)
[2018-08-07] MEDS: SODIUM CHLORIDE 1,000 MG TAB PO SCH ×2 (09:23→17:25)
[2018-08-07] MEDS: POTASSIUM CL 10 MEQ TAB PO SCH (09:23)
[2018-08-07] MEDS: ENOXAPARIN 80 MG/0.8 ML SYR SC SCH (09:24)
[2018-08-07] MEDS ORDERED: POTASSIUM CL 10 MEQ TAB PO ONE ×2 (09:36→12:00)
--- NOTE | 2018-08-07 10:34 | HOSPPROG ---
Hospitalist Progress Note Assessment/Plan: 62 yo F with PMH of recently diagnosed metastatic cholangiocarcinoma admitted with anasarca and KIARRA # LE edema / anasarca - per cardiology, not a cardiac process. Hypoalbuminemia is surely contributory. Reviewed 07/21/2018 CT from [facility], tumor infiltration and obstructive process may also be contributing. UA neg for proteinuria. TTE 08/02- normal EF, mild diastolic dysfunction. Abdominal US negative for ascites. LE u/s neg for DVT. - d/c diuretics as no significant improvement and may be contributing to KIARRA - repeat albumin infusion today - dietary consult appreciated, pt to increase ensure up to 6x / d as tolerated to increase protein intake # KIARRA with b/l hydronephrosis - Cr was 0.9 at [facility] on 07/21/2018. Cr here 2.2 --> 1.7. FeNa is 0.05%, suggesting she is intravascularly dry. Poor uop. - as above, d/c diuretics - renal u/s today shows mod b/l hydronephrosis, likely ureteral obstruction from tumor - discussed with urology, will make NPO at midnight for b/l ureteral stents tomorrow, pt would like to proceed # Coag neg staph bacteremia in 2/2 BCxs - afebrile, no leukocytosis or signs of sepsis. - Continue Vancomycin, will discuss with ID if daptomycin might be preferred at d/c given renal issues (hoping Cr will improve after ureteral stents) - PICC line to remain in place, defer pulling PICC to outpt oncology prior to next chemo - Echo neg for vegetation # PE - discussed Lovenox vs NOAC or coumadin with onc, who recommends Lovenox - cont lovenox, may need dose adjustment if renal function worsens # Possible PNA - repeat CXR pers reviewed /interp, I don't appreciate a significant infiltrate. Radiology read notes stable consolidation - Levaquin d/c'd per ID - f/u imaging as outpt # Hyponatremia - Improving 122 --> 131 with diuresis and increased solute. - needs more protein and solute, will add salt tabs, cont ensure supplements # Elevated LFTs - Alk phos has trended down from earlier, transaminases remain mildly elevated, bili normal. +hx of biliary obstruction related to cholangiocarcinoma with biliary stent placed - continue to trend # Metastatic Cholangiocarincoma - mets to liver, bone. Recently started on palliative chemotherapy with gemcitabine and cisplatin, diagnosed in May - Oncology following # Generalized weakness - PT/OT # Malnutrition - dietary consult requested Dispo: likely home with [facility] in 1-2 days. CM following, cont PT/OT evals. Neal palliative involved, may transition to hospice Subjective: Pt feels ok, gets low back pain and spasms at times. No CP, SOB, N/ V. No fevers/chills. Still poor uop. Objective: Vital Signs Temp Pulse Resp BP Pulse Ox 36.4 C 108 H 16 105/77 98 08/07/18 07:49 08/07/18 07:49 08/07/18 07:49 08/07/18 07:49 08/07/18 07:49 Laboratory Results 08/03/18 05:40 08/07/18 04:45 08/06/18 08/07/18 08/08/18 05:59 05:59 05:59 Intake Total 975 500 Output Total 400 750 Balance 575 -250 PT 22.2 SEC (12.0-15.0) H 08/01/18 13:40 INR 1.94 (0.83-1.16) H 08/01/18 13:40 - Physical Exam Constitutional: no apparent distress Eyes: PERRL Ears, Nose, Mouth, Throat: moist mucous membranes Cardiovascular: regular rate and rhythym Respiratory: no respiratory distress, clear to auscultation Gastrointestinal: normoactive bowel sounds, soft, non-tender abdomen Skin: warm Musculoskeletal: full muscle strength, other (3+ b/l LE pitting edema) Neurologic: AAOx3 Psychiatric: interacting appropriately ICD10 Worksheet Patient Problems: Problems Problem Status Onset Anasarca Acute Left lower lobe pneumonia Acute Volume overload Acute
[2018-08-07] MEDS ORDERED: ALBUMIN 25% 200 ML IV ONE (11:49)
--- NOTE | 2018-08-07 12:02 | SOAPPROG ---
SOAP Progress Note Assessment/Plan: Assessment: 1) Metastatic cholangiocarcinoma 2) Recent PE 3) Acute on chronic renal insufficiency 4) Anasarca 5) Staph Epi bacteremia Plan: Case d/w Dr. Mejia. Will d/c her diuretic regimen today, as there does not appear to be any incremental improvement in her anasarca or renal insufficiency at this point. Will give a dose of albumin today. Will check CBC and transfuse for hemoglobin < 9 as this may help her kidneys and her anasarca. Continue Vancomycin for now, and consider removal of PICC line at some point. I favor continuing Lovenox detention for her PE. If her renal function worsens, this may need to be reconsidered. Patient is very realistic about her illness, and hopes to be well enough to visit her family [facility] the [facility] in the near future. Her questions were answered. 08/07/18 11:58 08/07/18 12:02 08/07/18 12:04 Subjective: Denies pain. Anasarca persists Objective: Vital Signs Temp Pulse Resp BP Pulse Ox 36.4 C 114 H 16 118/70 97 08/07/18 11:38 08/07/18 11:38 08/07/18 11:38 08/07/18 11:38 08/07/18 11:38 Laboratory Results 08/03/18 05:40 08/07/18 04:45 08/06/18 08/07/18 08/08/18 05:59 05:59 05:59 Intake Total 975 500 Output Total 400 750 300 Balance 575 -250 -300 PT 22.2 SEC (12.0-15.0) H 08/01/18 13:40 INR 1.94 (0.83-1.16) H 08/01/18 13:40 - Time Spent With Patient Time Spent With Patient: 25 minutes Physical Exam - Physical Exam General Appearance: alert, no apparent distress EENT: PERRL/EOMI Cardiac/Chest: regular rate, rhythm Abdomen: non-tender, soft Extremities: other (Generalized edema) Neuro/Psych: alert, normal mood/affect ICD10 Worksheet Patient Problems: Problems Problem Status Onset Anasarca Acute Left lower lobe pneumonia Acute Volume overload Acute
[2018-08-07] MEDS: PROMETHAZINE HCL 25 MG/ML INJ IVP PRN ×2 (12:31→19:20)
[2018-08-07] MEDS ORDERED: POTASSIUM CL 20 MEQ TAB PO ONE (21:12)
[2018-08-07] MEDS: oxyCODONE IR 5 MG TAB PO PRN (21:42)
[2018-08-07] MEDS: LORazepam 0.5 MG TAB PO PRN (21:42)
[2018-08-08 05:22] LABS: PLATELET COUNT 56 10^3/uL (150-400)
[2018-08-08] MEDS ORDERED: POTASSIUM CL 10 MEQ TAB PO ONE ×2 (06:58→20:13)
[2018-08-08] MEDS ORDERED: LIDOCAINE 2% JELLY 20 ML (UROJECT) ONE (07:59)
[2018-08-08] MEDS ORDERED: IOPAMIDOL (ISOVUE-M 300) 15 ML VIAL ONE ×2 (08:00→10:37)
--- NOTE | 2018-08-08 09:55 | PDANEPAE ---
ANE Past Medical History - Cardiovascular History Hx Hypertension: Yes - Pulmonary History Hx Oxygen in Use at Home: Yes O2 in Use at Home (L/minute): 1-2 Hx Sleep Apnea: No Sleep Apnea Screening Result - Last Documented: Negative - Endocrine History Hx Diabetes: No - Cancer History Hx Cancer: Yes ANE Review of Systems Review of Systems: ANE Patient History - Allergies Allergies/Adverse Reactions: ondansetron [From Zofran] Allergy (Severe, Verified 08/01/18 15:44) Vomiting Sulfa (Sulfonamide Antibiotics) Allergy (Severe, Verified 08/01/18 12:35) "My body shuts down" - Home Medications Home Medications: Acetaminophen [Tylenol ES 500 mg (*)] 500 - 1,000 mg PO BID PRN 08/01/18 [Last Taken 07/31/18] Cyclobenzaprine [Flexeril 10 MG (*)] 10 mg PO TID PRN 08/01/18 [Last Taken 07/30] Docusate Sodium [Colace 100 MG (*)] 100 mg PO DAILY PRN 08/01/18 [Last Taken 07/10] Enoxaparin [Lovenox 80 MG (*)] 80 mg SQ 10,08/01/18 [Last Taken 08/01/18 10: 00] Furosemide [Lasix 20 MG (*)] 20 mg PO Q48H 08/01/18 [Last Taken 07/30/18] Potassium Chloride [Klor-Con 10] 10 meq PO DAILY 08/01/18 [Last Taken 07/30/18] Simethicone [Gas-X] 125 mg PO Q6 PRN 08/01/18 [Last Taken 07/31/18] oxyCODONE HCL [Oxycodone HCl] 1 tab PO Q4 PRN 08/01/18 [Last Taken 08/01/18 10: 00] - NPO status NPO Since - Liquids (Date): 08/08/18 NPO Since - Liquids (Time): 00:00 NPO Since - Solids (Date): 08/08/18 NPO Since - Solids (Time): 00:00 - Smoking Hx Smoking Status: Never smoked - Alcohol Use Alcohol Use: Rarely ANE Labs/Vital Signs - Labs Result Diagrams: 08/08/18 05:00 08/08/18 05:00 - Vital Signs Blood Pressure: 123/83 Heart Rate: 111 Respiratory Rate: 16 O2 Sat (%): 96 Height: 167.64 cm Weight: 92.18 kg ANE Physical Exam - Airway Mallampati Score: Class 1 - ASA Status ASA Status: III, E ANE Anesthesia Plan Anesthesia Plan: GA w LMA
[2018-08-08] MEDS ORDERED: VANCOMYCIN 1.25 GM in NS 250 ML IV ONE (10:00)
[2018-08-08] MEDS ORDERED: MIDAZOLAM 2 MG/2 ML VIAL ONE (10:02)
[2018-08-08] MEDS ORDERED: PROPOFOL 200 MG/20 ML VIAL ONE (10:03)
[2018-08-08] MEDS ORDERED: fentaNYL 100 MCG/2 ML INJ ONE ×2 (10:03→11:12)
[2018-08-08] MEDS ORDERED: METOCLOPRAMIDE 10 MG/2 ML VIAL ONE (10:06)
[2018-08-08] MEDS ORDERED: LIDOCAINE 2% JELLY 5 ML TUBE ONE (10:06)
[2018-08-08] MEDS ORDERED: PROMETHAZINE HCL 25 MG/ML INJ ONE (10:09)
[2018-08-08] MEDS ORDERED: levOFLOXACIN 500 MG/DEXTROSE 100 ML IV ONE (10:10)
--- NOTE | 2018-08-08 10:16 | PDCONSULT ---
Net Mobile Developer Note: RFC bilateral hydro Requested by Dr.Kelly Mejia HPI 62F w metastatic cholangiocarcinoma 05/2018 and bilateral hydronephrosis seen on CT scan at a [facility] on 07/20/2018, I personally reviewed the images from [facility] and there is moderate bilateral hydronephrosis due to proximal ureteral obstruction. Patient with Cr but no flank pain. Does have lower back pain. ROS 10pt ROS performed, as stated in HPI, otherwise neg - Past Medical History cancer (cholangiocarcinoma, has had biliary obstruction), hypertension, pulmonary embolism Additional medical history: nocturnal hypoxia - Surgical History Reports: cholecystectomy Additional surgical history: biliary stent placement. removal of large ovarian cyst. tonsillectomy. wrist surgery PE AFVSS Gen NAD A&O CV regular Lungs Normal effort Abd soft Ext warm Labs Bacteremia Staph epi - on vanco. Cr 1.6 WBC 1.3 A/P Bilateral hydro from external ureteral compression from metastatic cholangiocarcioma w bacteremia Needs bilateral ureteral stents. Discussed if unable to place stent, will need IR to place bilateral percutaneous tubes. She understands and agrees to proceed. Consent received. She understands she will need exchange of these stents at 3 mo.
[2018-08-08] MEDS ORDERED: PROMETHAZINE HCL 25 MG/ML INJ IVP PRN (11:08)
[2018-08-08] MEDS ORDERED: LR 500 ML IV PRN (11:08)
[2018-08-08] MEDS ORDERED: HYDROmorphONE/DILAUDID 1 MG/ML INJ IVP PRN (11:08)
[2018-08-08] MEDS ORDERED: NALOXONE HCL 0.4 MG/ML INJ IVP PRN (11:08)
--- NOTE | 2018-08-08 11:09 | POSTANESTH ---
Post Anesthetic Evaluation Cardiovascular Status: Similar to Pre-Op Cond Respiratory Status: Similar to Pre-op Cond. Level of Consciousness/Mental Status: Can Participate in Eval Pain Control: Adequate, Prn Tx Ordered Nausea/Vomiting Control: Adequate, Prn Tx Ordered Complications Possibly Related to Anesthesia: None Noted
--- NOTE | 2018-08-08 11:10 | POSTOPPROG ---
Post Op Note Date of Operation: 08/08/18 Surgeon: Celeste Ho Anesthesiologist: Dr. East Anesthesia: LMA Pre-op Diagnosis: bilateral hydronephrosis, anasarca, met cholangiocarcinoma Post-op Diagnosis: same Indication: bilateral hydronephrosis, hx bacteremia, renal failure Procedure: cystoscopy, BLE RGP, bilateral stents Findings: bilateral hydro Inf/Abcess present in the surg proc area at time of surgery?: No Depth: Organ Space (urologic system) EBL: Minimal Complications: none patient tolerated procedure well Drains: Other (matamoros) Specimen(s): none
[2018-08-08] MEDS: fentaNYL 100 MCG/2 ML INJ IVP PRN ×2 (11:16→11:29)
[2018-08-08] MEDS: oxyCODONE IR 5 MG TAB PO PRN ×2 (12:24→20:44)
[2018-08-08] MEDS: POTASSIUM CL 10 MEQ TAB PO SCH (12:26)
[2018-08-08] MEDS: SODIUM CHLORIDE 1,000 MG TAB PO SCH ×2 (12:26→18:16)
--- NOTE | 2018-08-08 12:48 | SOAPPROG ---
SHIVAM Progress Note Assessment/Plan: Assessment: 1) Metastatic cholangiocarcinoma (C1 Cisplatin / Gemzar given 07/29/18) 2) Recent PE 3) Acute on chronic renal insufficiency 4) Anasarca 5) Staph Epi bacteremia 6) Bilateral hydronephrosis s/p bilateral ureteral stents 08/06. 7) Chemotherapy induced pancytopenia Plan: Patient had bilateral ureteral stents placed yesterday. She is now having a good diuresis. Hopefully we will see additional improvement in her renal function over time. THis should also help with her anasarca. Her low blood counts are secondary to recent Gemzar / Cisplatin administration. If her Hgb dropsbelow 8.5, would recommend transfusion which may further help her renal insufficiency and anasarca. Continue Vancomycin for now, and consider removal of PICC line at some point. I favor continuing Lovenox half-way for her PE. If her renal function worsens, this may need to be reconsidered. Plan to continue for now in light of low platelets. Hold for platelets < 40k or bleeding. Patient is very realistic about her illness, and hopes to be well enough to visit her family on the [facility] in the near future. Her questions were answered. Case d/w Dr. Mejia. Subjective: Bilateral ureteral stents placed yesterday. Denies pain. Objective: Vital Signs Temp Pulse Resp BP Pulse Ox 36.4 C 106 H 16 127/88 H 100 08/08/18 12:06 08/08/18 12:06 08/08/18 12:06 08/08/18 12:06 08/08/18 12:06 Laboratory Results 08/08/18 05:00 08/08/18 05:00 08/07/18 08/08/18 08/09/18 05:59 05:59 05:59 Intake Total 500 400 275 Output Total 750 1000 50 Balance -250 -600 225 PT 22.2 SEC (12.0-15.0) H 08/01/18 13:40 INR 1.94 (0.83-1.16) H 08/01/18 13:40 - Time Spent With Patient Time Spent With Patient: 25 minutes Physical Exam - Physical Exam General Appearance: alert, no apparent distress EENT: PERRL/EOMI Abdomen: non-tender, soft Skin: No rash Neuro/Psych: alert, normal mood/affect ICD10 Worksheet Patient Problems: Problems Problem Status Onset Anasarca Acute Left lower lobe pneumonia Acute Volume overload Acute
--- NOTE | 2018-08-08 12:50 | HOSPPROG ---
Hospitalist Progress Note Assessment/Plan: 62 yo F with PMH of recently diagnosed metastatic cholangiocarcinoma admitted with anasarca and KIARRA # LE edema / anasarca - per cardiology, not a cardiac process. Hypoalbuminemia is surely contributory. Reviewed 07/21/2018 CT from [facility], tumor infiltration and obstructive process may also be contributing. UA neg for proteinuria. TTE 08/02- normal EF, mild diastolic dysfunction. Abdominal US negative for ascites. LE u/s neg for DVT. - d/c'd diuretics 08/07 as no significant improvement and may be contributing to KIARRA - s/p multiple albumin infusions - dietary consult appreciated, pt to increase ensure up to 6x / d as tolerated to increase protein intake - consider prbc's to help with intravascular protein, discussed with onc # KIARRA with b/l hydronephrosis - Cr was 0.9 at [facility] on 07/21/2018. Cr here 2.2 --> 1.6. FeNa is 0.05%, suggesting she is intravascularly dry. Poor uop. CT 07/21 from the [facility] reviewed, showed mod b/l hydro with proximal ureteral obstruction 2/2 tumor infiltration - as above, stopped diuretics - b/l ureteral stents placed this am by urology with immediate diuresis, expect post-obstructive diuresis - matamoros in place for I&O's # Coag neg staph bacteremia in 2/2 BCxs - afebrile, no leukocytosis or signs of sepsis. - Continue Vancomycin, dosing daily based on renal function, anticipate Cr to improve s/p stenting - PICC line to remain in place, defer pulling PICC to outpt oncology prior to next chemo - Echo neg for vegetation # PE - discussed Lovenox vs NOAC or coumadin with onc, who recommends discharging on Lovenox - cont lovenox, pt comfortable with this at home # Possible PNA - repeat CXR pers reviewed /interp, I don't appreciate a significant infiltrate. Radiologist notes stable LLL consolidation - Levaquin d/c'd - f/u imaging as outpt # Hyponatremia - Improving 122 --> 133 with more protein and increased solute. - cont salt tabs, ensure - follow # Elevated LFTs - Alk phos has trended down from earlier, transaminases remain mildly elevated, bili normal. +hx of biliary obstruction related to cholangiocarcinoma with biliary stent placed - continue to trend # Metastatic Cholangiocarincoma - mets to liver, bone. Recently started on palliative chemotherapy with gemcitabine and cisplatin, diagnosed in May - Oncology following # Generalized weakness - PT/OT # Malnutrition - dietary following Dispo: likely home with [facility] in 1-2 days. CM following, cont PT/OT evals. Neal palliative involved, may transition to hospice Subjective: Pt doing ok, continues to c/o b/l low back pain (?symptom of b/l hydro). Still poor oral intake, but tolerating some ensure. No fevers/chills. Poor uop. No N/V/D. Objective: Vital Signs Temp Pulse Resp BP Pulse Ox 36.4 C 106 H 16 127/88 H 100 08/08/18 12:06 08/08/18 12:06 08/08/18 12:06 08/08/18 12:06 08/08/18 12:06 Laboratory Results 08/08/18 05:00 08/08/18 05:00 08/07/18 08/08/18 08/09/18 05:59 05:59 05:59 Intake Total 500 400 275 Output Total 750 1000 50 Balance -250 -600 225 PT 22.2 SEC (12.0-15.0) H 08/01/18 13:40 INR 1.94 (0.83-1.16) H 08/01/18 13:40 - Physical Exam Constitutional: no apparent distress Eyes: PERRL Ears, Nose, Mouth, Throat: moist mucous membranes Cardiovascular: regular rate and rhythym Respiratory: no respiratory distress, clear to auscultation Gastrointestinal: normoactive bowel sounds, soft, non-tender abdomen Skin: warm Musculoskeletal: generalized weakness Neurologic: AAOx3 Psychiatric: interacting appropriately ICD10 Worksheet Patient Problems: Problems Problem Status Onset Anasarca Acute Left lower lobe pneumonia Acute Volume overload Acute
--- NOTE | 2018-08-08 13:42 | PCMIDPN ---
Assessment/Plan: 1. Coagulase-negative staphylococcal bacteremia associated with PICC line: Patient needs 4 more days of antibiotic therapy. Continue vancomycin for now, dosed by level. She was re-dosed today, and will have another random level checked tomorrow evening. Disposition unclear at this point in time. Hopefully her renal function will improve in the setting of new bilateral ureteral stents. CBC abnormal secondary to chemotherapy, not vancomycin. Subjective: Telling me that she is in severe pain. Is waiting for pain medicine from the nurse. Her back is where the pain is. Objective: Vancomycin by level stop date 08/12 No fevers Vital Signs Temp Pulse Resp BP Pulse Ox 36.4 C 113 H 20 126/89 H 100 08/08/18 13:21 08/08/18 13:21 08/08/18 13:21 08/08/18 13:21 08/08/18 13:21 Laboratory Results 08/08/18 05:00 08/08/18 05:00 08/07/18 08/08/18 08/09/18 05:59 05:59 05:59 Intake Total 500 400 275 Output Total 750 1000 50 Balance -250 -600 225 Repeat blood cultures sterile - Physical Exam General Appearance: other (Patient is covered up in blankets, almost tearful secondary to back pain) EENT: pharynx normal, No thrush Extremities: other (PICC line right upper extremity looks fine) ICD10 Worksheet Patient Problems: Problems Problem Status Onset Anasarca Acute Left lower lobe pneumonia Acute Volume overload Acute
[2018-08-08] MEDS: CYCLOBENZAPRINE 10 MG TAB PO PRN ×2 (13:58→20:54)
--- NOTE | 2018-08-08 14:54 | ASMTCMCOM ---
CM Note CM Note Notes: Patient s/p bilateral ureter stents for diagnosis of hydronephrosis. Per ID just a few more doses of vancomycin. Post chemo dip in CBC noted. May get transfused. Plan of care remains home with [facility], Palliative care via [facility] and maybe home infusion services. CM to follow,. Plan: As outlined above. Date Signed: 08/08/2018 02:54 PM Electronically Signed By:Nicole Sparks RN
[2018-08-08] MEDS: CALCIUM CARBONATE 500 MG TAB PO SCH ×2 (15:33→20:44)
[2018-08-08] MEDS: ENOXAPARIN 80 MG/0.8 ML SYR SC SCH (20:55)
--- NOTE | 2018-08-08 22:08 | GOP ---
DATE OF OPERATION: 08/08/2018 SURGEON: Celeste Ho MD ANESTHESIA: An LMA. ANESTHESIOLOGIST: Jam East MD. PREOPERATIVE DIAGNOSIS: Bilateral hydronephrosis, anasarca, and metastatic cholangiocarcinoma. POSTOPERATIVE DIAGNOSIS: Bilateral hydronephrosis, anasarca, and metastatic cholangiocarcinoma. PROCEDURE PERFORMED: Cystoscopy, bilateral retrograde pyelogram, and bilateral stent placement. FINDINGS: Bilateral hydronephrosis. SPECIMENS: None. ESTIMATED BLOOD LOSS: Minimal. INDICATIONS: Bilateral hydronephrosis, history of recent bacteremia, and renal failure. DESCRIPTION OF PROCEDURE: The patient was taken back to the cystoscopy suite, placed on the cystosco py table in a supine position. General anesthesia induced without complication. Time-out performed and core measures satisfied including placement of a Magdiel Hugger, SCDs, and administration of her nex t dose of vancomycin as well as a dose of Levaquin for gram-negative coverage. She was brought to th e end of the table, placed in a dorsal lithotomy position. All pressure points padded. Genitalia dr aped and prepped in a standard surgical fashion with Betadine. A rigid cystoscope, cannulated the ur ethral meatus. It was advanced atraumatically into the bladder. The bladder looked like there was b ladder spasm going on, but otherwise no cellules, lesions, or trabeculations. The right and left ure teral orifices were in the correct anatomical position. The left ureteral orifice was identified. A cone-tipped catheter was advanced through the distal end of the ureteral orifice and a retrograde py elogram performed demonstrating a normal distal ureter, but a pencil thin mid and proximal ureter and associated hydronephrosis. The ureter drained, but the kidney did not. I then placed a 6-Jordanian 5 multivariable stent with fluoroscopic and cystoscopic guidance without dif ficulty. I next identified the right ureteral orifice, again did a retrograde pyelogram, and again t here was right hydronephrosis demonstrated with this pyelogram. A 6-Jordanian multivariable stent was a lso placed on the right with fluoroscopic and cystoscopic guidance. At this point, her bladder was e mptied. The procedure was considered complete. I then elected to place a Urrutia catheter as I did se e copious amounts of urine draining from both the right and left stents at the end of the procedure, so I was concerned there would be need of accurate I's and O's and concern for postobstructive diures is. At this point, the procedure was considered complete. She was awoken from anesthesia and transf erred to PACU in good condition. COMPLICATIONS: None. DRAINS: A Urrutia. INDICATIONS: The patient has been admitted for neutropenia and recent bacteremia and noted to have b ilateral hydronephrosis that was seen on the CT scan at the end of June at the [facility]. I personally reviewed these images and there was bilateral moderate hydronephrosis due to exter nal compression from the metastatic cholangiocarcinoma obstructing just the ureters. So indication w as for bilateral stent placement. I discussed with the patient the stents and need for exchange in 3 months, as well as possibility of inability to place the stent where as then Interventional Radiolog y would need to place bilateral perc tube. She understood and agreed to proceed. /[id number]/MODL
[2018-08-09] MEDS: oxyCODONE IR 5 MG TAB PO PRN ×3 (05:47→21:14)
--- NOTE | 2018-08-09 05:47 | CPEKG ---
Test Reason : OPEN Blood Pressure : / mmHG Vent. Rate : 118 BPM Atrial Rate : 118 BPM P-R Int : 139 ms QRS Dur : 079 ms QT Int : 313 ms P-R-T Axes : 024 -05 159 degrees QTc Int : 439 ms Sinus tachycardia Probable left atrial enlargement Nonspecific T abnormalities, lateral leads Confirmed by Keith Dinh ([id number]) on 08/09/2018 5:46:58 AM Referred By: Confirmed By:Keiht Dinh
[2018-08-09 06:25] LABS: PLATELET COUNT 82 10^3/uL (150-400)
--- NOTE | 2018-08-09 09:43 | PCMIDPN ---
Assessment/Plan: Assessment: Coagulase-negative Staph bacteremia secondary to line infection. Line has been pulled. Patient on vancomycin monotherapy which is appropriate. Vancomycin level yesterday reasonable. Await level this evening. Creatinine improved to 1.5. Complete blood cell count values also improved. Plan: 1. Continue vancomycin at present dose. Patient requires 3 more days of therapy. 2. Continue pain management. Follow clinical complaints. 08/09/18 09:42 Subjective: Patient is complaining of some tightness and discomfort in her left buttock and thigh region. No fevers or chills. Denies any rash. Had difficulty sleeping last night due to the discomfort. Objective: Vancomycin -stop date 08/12 Vital Signs Temp Pulse Resp BP Pulse Ox 36.4 C 111 H 16 122/87 H 98 08/09/18 09:05 08/09/18 09:05 08/09/18 09:05 08/09/18 09:05 08/09/18 09:05 Microbiology 08/03/18 14:17 Blood Culture - Final Blood 08/03/18 13:25 Blood Culture - Final Blood Laboratory Results 08/09/18 05:30 08/09/18 05:55 08/08/18 08/09/18 08/10/18 05:59 05:59 05:59 Intake Total 400 1125 Output Total 1000 550 Balance -600 575 - Physical Exam General Appearance: WD/WN, alert, no apparent distress, non-toxic Respiratory: lungs clear, normal breath sounds, No respiratory distress Cardiac/Chest: regular rate, rhythm, tachycardia, No systolic murmur, No irregularly irregular Extremities: non-tender, normal inspection, pedal edema Skin: normal color, warm/dry, No rash Neuro/Psych: alert, normal mood/affect, oriented x 3 ICD10 Worksheet Patient Problems: Problems Problem Status Onset Anasarca Acute Left lower lobe pneumonia Acute Volume overload Acute
[2018-08-09] MEDS: SODIUM CHLORIDE 1,000 MG TAB PO SCH (10:14)
[2018-08-09] MEDS: CALCIUM CARBONATE 500 MG TAB PO SCH ×2 (10:14→21:14)
[2018-08-09] MEDS: POTASSIUM CL 10 MEQ TAB PO SCH ×2 (10:14→12:24)
[2018-08-09] MEDS: PROMETHAZINE HCL 25 MG/ML INJ IVP PRN ×2 (10:39→21:14)
[2018-08-09] MEDS: ENOXAPARIN 80 MG/0.8 ML SYR SC SCH ×2 (12:35→21:14)
[2018-08-09] MEDS ORDERED: BUMETANIDE 1 MG/4 ML VIAL IVP ONE (13:32)
--- NOTE | 2018-08-09 13:35 | HOSPPROG ---
Hospitalist Progress Note Assessment/Plan: 62 yo F with PMH of recently diagnosed metastatic cholangiocarcinoma admitted with anasarca and KIARRA # LE edema / anasarca - per cardiology, not a cardiac process. Hypoalbuminemia is surely contributory. Reviewed 07/21/2018 CT from [facility], tumor infiltration and obstructive process may also be contributing. UA neg for proteinuria. TTE 08/02- normal EF, mild diastolic dysfunction. Abdominal US negative for ascites. LE u/s neg for DVT. - diuretics held yesterday due to lack of response, will resume today after ureteral stents and resolution of obstruction - s/p multiple albumin infusions - dietary consult appreciated, pt to increase ensure up to 6x / d as tolerated to increase protein intake - consider prbc's to help with intravascular protein, discussed with onc # KIARRA with b/l hydronephrosis - Cr was 0.9 at [facility] on 07/21/2018. Cr here 2.2 --> 1.5. FeNa is 0.05%. Poor uop, improving s/p stents. CT 07/21 from [facility] reviewed, showed mod b/l hydro with proximal ureteral obstruction 2/2 tumor infiltration - b/l ureteral stents placed yest with immediate diuresis noted by urology - matamoros in place for I&O's # Coag neg staph bacteremia in 2/2 BCxs - afebrile, no leukocytosis or signs of sepsis. - Continue Vancomycin, dosing daily based on renal function, anticipate Cr to improve s/p stenting - PICC line to remain in place, defer pulling PICC to outpt oncology prior to next chemo - Echo neg for vegetation # PE - discussed Lovenox vs NOAC or coumadin with onc, who recommends discharging on Lovenox - cont lovenox # Possible PNA - repeat CXR pers reviewed /interp, I don't appreciate a significant infiltrate. Radiologist notes stable LLL consolidation - Levaquin d/c'd - f/u imaging as outpt # Hyponatremia - Improving 122 --> 133 with more protein and increased solute. # Elevated LFTs - Alk phos has trended down, transaminases remain mildly elevated, bili normal. +hx of biliary obstruction related to cholangiocarcinoma - s/p biliary stent - continue to trend # Metastatic Cholangiocarincoma - mets to liver, bone. Recently started on palliative chemotherapy with gemcitabine and cisplatin, diagnosed in May - Oncology following - pt understands she has non-curative cancer and is considering transition to hospice, but is hoping to visit family on [facility] # Generalized weakness - PT/OT # Malnutrition - dietary following Dispo: was planning for home care with palliative and possible transition to hospice, but with very poor mobility in setting of anasarca, planning now for SNF Subjective: Pt feels ok, back pain improved a bit. She is very weak and edema is limiting her mobility. She needs help with almost any movement. No CP or SOB. Still very poor po intake. Objective: Vital Signs Temp Pulse Resp BP Pulse Ox 36.6 C 122 H 16 123/89 H 94 08/09/18 12:00 08/09/18 12:00 08/09/18 12:00 08/09/18 12:00 08/09/18 12:00 Microbiology 08/03/18 14:17 Blood Culture - Final Blood 08/03/18 13:25 Blood Culture - Final Blood Laboratory Results 08/09/18 05:30 08/09/18 05:55 08/08/18 08/09/18 08/10/18 05:59 05:59 05:59 Intake Total 400 1125 Output Total 1000 550 Balance -600 575 PT 22.2 SEC (12.0-15.0) H 08/01/18 13:40 INR 1.94 (0.83-1.16) H 08/01/18 13:40 - Physical Exam Constitutional: no apparent distress Eyes: PERRL Ears, Nose, Mouth, Throat: moist mucous membranes Cardiovascular: regular rate and rhythym Respiratory: no respiratory distress, reduced air movement Gastrointestinal: normoactive bowel sounds, soft, non-tender abdomen Skin: warm Musculoskeletal: generalized weakness, other (LE edema is actually a little improved, but still extends to abdomen) Neurologic: AAOx3 Psychiatric: interacting appropriately ICD10 Worksheet Patient Problems: Problems Problem Status Onset Anasarca Acute Left lower lobe pneumonia Acute Volume overload Acute
--- NOTE | 2018-08-09 15:11 | ASMTCMCOM ---
CM Note CM Note Notes: Patient plan of care reviewed in rounds. She was planning on home with HHC and palliative as the thought would be to pursue palliative chemo but not sure if palliative chemo would alleviate the symptoms of anasarca which she feels are most problematic for her. Will attempt to visit when her raj is present to clafiry plan of care as patient states she would rather be at home. CM to follow. Plan: TBD Date Signed: 08/09/2018 03:10 PM Electronically Signed By:Nicole Sparks RN
[2018-08-09] MEDS: CYCLOBENZAPRINE 10 MG TAB PO PRN ×2 (15:50→21:14)
--- NOTE | 2018-08-09 18:48 | SOAPPROG ---
SOBALJINDER Progress Note Assessment/Plan: Assessment/Plan: 1) Metastatic cholangiocarcinoma (C1 Cisplatin / Gemzar given 07/29/18) Underscored again today with the patient that unfortunately this is an incurable illness. With her current performance status which would be a high performance status of at least 3 she would also not be a candidate for additional systemic chemotherapy. Therefore I recommended to the patient into the hospital for patient to spends at least sometime in acute rehabilitation to see if she can improve her performance status as well as and be more active which should also help with her anasarca 2) Recent PE As per the CLOT trial, would continue with lifelong anticoagulation with lovenox or endoxaban. 3) Acute on chronic renal insufficiency [place] to be secondary to acute obstruction. Patient had bilateral ureteral stents placed August 06, 2018 with subsequent good urine output. She is now trending more back towards her baseline 4) Anasarca Likely multifactorial from decreased ambulation, hypoalbuminemia and renal failure. She has continued to gain weight throughout her admission to the hospital, with outside would recommend an aggressive plan for diuresis with IV diuretics with a treatment plan for transition to oral diuretics. Would also stop the salt tablets. -Could consider 5mg of olanzapine qhs for appetite. 5) Staph Epi bacteremia Being followed by infectious disease currently on vancomycin 6) Chemotherapy induced pancytopenia Blood counts are currently stable with no indications for transfusion or growth factor support Anticipate patient can be discharged to a fpc facility with plan for mild to moderate diuresis of roughly 500 cc/day goal and outpatient follow- up with Dr. Middleton next week Travis Xavier 08/09/18 18:41 08/09/18 18:52 Subjective: Patient reports feeling well she denies fevers chills or drenching night sweats she still continues to take very little in p.o. she is taking perhaps clear Ensure daily. Her abdominal pain has mostly resolved and she thinks some of her anasarca is slowly improving since the stents were placed. Objective: Vital Signs Temp Pulse Resp BP Pulse Ox 36.4 C 127 H 18 112/85 H 95 08/09/18 16:00 08/09/18 16:00 08/09/18 16:00 08/09/18 16:00 08/09/18 16:00 Microbiology 08/03/18 14:17 Blood Culture - Final Blood 09/11/18 13:25 Blood Culture - Final Blood Laboratory Results 08/09/18 05:30 08/09/18 05:55 08/08/18 08/09/18 08/10/18 05:59 05:59 05:59 Intake Total 400 1125 240 Output Total 1000 550 335 Balance -600 575 -95 PT 22.2 SEC (12.0-15.0) H 08/01/18 13:40 INR 1.94 (0.83-1.16) H 08/01/18 13:40 Physical examination: General: No acute distress appearing nontoxic appearing female with significant sarcopenia and edema HEENT: Pupils equal round reactive to light no scleral icterus or conjunctival pallor is appreciated oral mucosa is moist without any evidence of oral pharyngeal lesions. Cardiovascular: tachycardic rate regular rhythm without rubs thrills gallops or murmurs Chest: Decreased at bilateral bases otherwise clear to auscultation and percussion bilaterally Extremities: Warm and well perfused with pitting edema up to the level of the sternum, 2+ in bilateral lower extremities/presacral edema is also present Neurologic: Cranial nerves II through XII are grossly intact ICD10 Worksheet Patient Problems: Problems Problem Status Onset Anasarca Acute Left lower lobe pneumonia Acute Volume overload Acute
[2018-08-09] MEDS ORDERED: VANCOMYCIN HCL/NORMAL SALINE 250 ML IV ONE (20:00)
[2018-08-10] MEDS: LORazepam 0.5 MG TAB PO PRN (01:16)
[2018-08-10] MEDS: oxyCODONE IR 5 MG TAB PO PRN ×2 (01:16→20:15)
[2018-08-10 05:13] LABS: PLATELET COUNT 104 10^3/uL (150-400)
--- NOTE | 2018-08-10 08:29 | HOSPPROG ---
Hospitalist Progress Note Assessment/Plan: #Stap epidermidis bacteremia: related to line, which was pulled. Last Vanc dose tomorrow #Anasarca: multifactorial with hypoalbuminemia, cancer burden. Mild diastolic HF on echo. Negative LE doppler. Dosed Bumex yesterday with small bump in Cr today. Repeating urine studies; may be intravascularly dry given increased tachycardia, decreased UOP. Re-dose albumin -2L fluid restriction #KIARRA: BL hydronephrosis from ureteral obstruction from tumor burden. s/p stent. #PE: Lovenox; renal function appropriate for dosing #Hypovolemic hyponatremia: improved #Metastatic cholangiocarcinoma: to bone, liver. Palliative chemo #Tachycardia: since admission. Suspect dry today, giving albumin #Goals: she wants to pursue rehab; goal is take a final trip to [place] with family/friends. I expressed my concern that she will clinically decline. Has met with Keanu in past and open to Palliative Care. I will further discuss hospice tomorrow #Diet: regular, 2 liter restriction #DVT ppx: Lovenox #Disp: may not qualify for SNF with Medicaid. May have to DC home with son; CM assisting Subjective: legs feel less swollen Objective: Vital Signs Temp Pulse Resp BP Pulse Ox 36.1 C 114 H 14 126/92 H 98 08/10/18 07:09 08/10/18 07:09 08/10/18 07:09 08/10/18 07:09 08/10/18 07:09 Microbiology 08/03/18 14:17 Blood Culture - Final Blood 08/03/18 13:25 Blood Culture - Final Blood Laboratory Results 08/10/18 05:00 08/10/18 05:00 08/09/18 08/10/18 08/11/18 05:59 05:59 05:59 Intake Total 1125 590 Output Total 550 635 Balance 575 -45 PT 22.2 SEC (12.0-15.0) H 08/01/18 13:40 INR 1.94 (0.83-1.16) H 08/01/18 13:40 - Time Spent With Patient Time Spent with Patient: greater than 35 minutes Time Spent with Patient: Greater than 35 minutes spent on this patients care, greater than 50% of time spent counseling, educating, and coordinating care regarding the above mentioned plan. - Physical Exam Constitutional: no apparent distress Eyes: PERRL Ears, Nose, Mouth, Throat: moist mucous membranes Cardiovascular: regular rate and rhythym, tachycardia, edema (+ 3 pitting edema to knees) Respiratory: no respiratory distress Gastrointestinal: distension Genitourinary: no bladder fullness Skin: warm Musculoskeletal: full muscle strength Neurologic: CN II-XII Intact Psychiatric: interacting appropriately ICD10 Worksheet Patient Problems: Problems Problem Status Onset Volume overload Acute Anasarca Acute Left lower lobe pneumonia Acute
[2018-08-10] MEDS: CALCIUM CARBONATE 500 MG TAB PO SCH ×2 (09:54→20:15)
[2018-08-10] MEDS: PROMETHAZINE HCL 25 MG/ML INJ IVP PRN ×2 (09:54→17:55)
[2018-08-10] MEDS: ENOXAPARIN 80 MG/0.8 ML SYR SC SCH ×2 (11:09→20:16)
--- NOTE | 2018-08-10 11:56 | PCMIDPN ---
Assessment/Plan: Assessment/Plan: * Coagulase negative Staphylococcus bacteremia secondary to PICC line: Rapid clearance of bacteremia and tolerating vancomycin well to date. Dosed intermittently given underlying renal insufficiency. Received dose yesterday and will be a do next dose on 08/11/2018 which will represent last dose of her treatment course. PICC line has been retained given isolate is coagulase- negative Staph and rapid clearance of bacteremia. Clinical findings and plan including last dose of vancomycin tomorrow were discussed with patient, pharmacy and Dr. Das. Will sign off. Please call for questions. 08/10/18 11:52 Subjective: Patient describes anxiety attack overnight. Has persistent lower extremity edema. Objective: Vital Signs Temp Pulse Resp BP Pulse Ox 36.4 C 118 H 14 110/82 H 98 08/10/18 11:17 08/10/18 11:17 08/10/18 11:17 08/10/18 11:17 08/10/18 11:17 Microbiology 08/03/18 14:17 Blood Culture - Final Blood 08/03/18 13:25 Blood Culture - Final Blood Laboratory Results 08/10/18 05:00 08/10/18 05:00 08/09/18 08/10/18 08/11/18 05:59 05:59 05:59 Intake Total 1125 590 Output Total 550 635 Balance 575 -45 Vancomycin dosed intermittently (last dose 08/09/2018) with anticipated stop date 08/12/2018 Blood cultures 08/03/2018 no growth Laboratory Tests 08/09/18 18:25 Random Vancomycin 15.6 - Physical Exam General Appearance: alert, no apparent distress EENT: No scleral icterus, No thrush, No conjunctival petechiae Respiratory: lungs clear (Anterolaterally), No respiratory distress Cardiac/Chest: regular rate, rhythm, No systolic murmur Extremities: pedal edema (3+ bilaterally with pitting) Abdomen: non-tender, No distended Skin: No embolic lesions - Line/s RUE PICC Lines: No drainage, No erythema ICD10 Worksheet Patient Problems: Problems Problem Status Onset Anasarca Acute Left lower lobe pneumonia Acute Volume overload Acute
[2018-08-10] MEDS ORDERED: HYDROmorphone HCL 0.5 MG/0.5 ML SYR IVP PRN (12:44)
[2018-08-10] MEDS: POTASSIUM CL 10 MEQ TAB PO SCH (12:44)
--- NOTE | 2018-08-10 13:17 | ASMTCMCOM ---
CM Note CM Note Notes: Per MD patient would now like to go to SNF Rehab. She has Medicaid. ULTC 100 done. Email to [employer] to perform screening. Patient was to go home with C and Palliative care originally. Will attempt to visit with patient again when her son is present. CM to follow. Plan: TBD Date Signed: 08/10/2018 01:16 PM Electronically Signed By:Nicole Sparks RN
[2018-08-10] MEDS ORDERED: BUMETANIDE 1 MG/4 ML VIAL IVP SCH (14:00)
--- NOTE | 2018-08-10 16:45 | SOAPPROG ---
SOBALJINDER Progress Note Assessment/Plan: Assessment/Plan: 1) Metastatic cholangiocarcinoma (C1 Cisplatin / Gemzar given 07/29/18) -Follow-up with Dr. Middleton as an outpatient -Recommend SNF/rehab to improve performance status as currently not a candidate for systemic therapy 2) Recent PE As per the CLOT trial, would continue with lifelong anticoagulation with lovenox or endoxaban (N Engl J Med 2018; [id number]). 3) Acute on chronic renal insufficiency [place] to be secondary to acute obstruction. Patient had bilateral ureteral stents placed August 06, 2018 with subsequent good urine output. She is now trending more back towards her baseline 4) Anasarca Likely multifactorial from decreased ambulation, hypoalbuminemia and renal failure. -recommend continuing diuresis with plan for 250-500cc/day net negative -olanzapine 5mg per day for appetite -up out of bed, perhaps compression stockings would be helpful 5) Staph Epi bacteremia Being followed by infectious disease currently on vancomycin 6) Chemotherapy induced pancytopenia Blood counts are currently stable with no indications for transfusion or growth factor support Anticipate patient can be discharged [facility] a jail [facility] Subjective: Patient reports feeling well. She reports ongoing decreased appetite. She has had some ensure yesterday but had some nausea and anxiety overnight. She denies any vomiting. She denies any pain. She denies fevers chills or drenching night sweats. She did receive 1 mg of Bumex yesterday and is down ~ 1kg from her previous day's weight. Objective: Vital Signs Temp Pulse Resp BP Pulse Ox 36.5 C 130 H 14 124/80 H 96 08/10/18 15:33 08/10/18 15:33 08/10/18 15:33 08/10/18 15:33 08/10/18 15:33 Laboratory Results 08/10/18 05:00 08/10/18 05:00 08/09/18 08/10/18 08/11/18 05:59 05:59 05:59 Intake Total 1125 590 420 Output Total 550 635 110 Balance 575 -45 310 PT 22.2 SEC (12.0-15.0) H 08/01/18 13:40 INR 1.94 (0.83-1.16) H 08/01/18 13:40 Physical examination: General: No acute distress appearing nontoxic appearing female with significant sarcopenia and edema HEENT: Pupils equal round reactive to light no scleral icterus or conjunctival pallor is appreciated oral mucosa is moist without any evidence of oral pharyngeal lesions. Cardiovascular: tachycardic rate regular rhythm without rubs thrills gallops or murmurs Chest: bronchial breath sounds - left posterior lung Extremities: Warm and well perfused with pitting edema up to the level of the sternum, 2+ in bilateral lower extremities/presacral edema is also present Neurologic: Cranial nerves II through XII are intact ICD10 Worksheet Patient Problems: Problems Problem Status Onset Anasarca Acute Left lower lobe pneumonia Acute Volume overload Acute
[2018-08-10] MEDS ORDERED: ALBUMIN 5% 500 ML IV ONE (17:30)
[2018-08-10] MEDS ORDERED: ALBUMIN 25% 100 ML IV ONE (19:30)
[2018-08-10] MEDS: CYCLOBENZAPRINE 10 MG TAB PO PRN (20:15)
[2018-08-10] MEDS: OLANZapine 5 MG TAB PO SCH (20:16)
[2018-08-11] MEDS: LORazepam 0.5 MG TAB PO PRN (00:39)
[2018-08-11] MEDS: oxyCODONE IR 5 MG TAB PO PRN (00:40)
[2018-08-11] MEDS: POTASSIUM CL 10 MEQ TAB PO SCH (08:36)
[2018-08-11] MEDS ORDERED: BUMETANIDE 1 MG/4 ML VIAL IVP SCH ×2 (09:00)
--- NOTE | 2018-08-11 09:34 | HOSPPROG ---
Hospitalist Progress Note Assessment/Plan: #Stap epidermidis bacteremia: related to line, which was pulled. Last Vanc dose tomorrow #Anasarca: multifactorial with hypoalbuminemia, cancer burden. Mild diastolic HF on echo. Negative LE doppler. Dosed Bumex yesterday with small bump in Cr today. Diurese has been difficult; dosed albumin last night. Cont gentle diuresis; monitor Cr closely -2L fluid restriction #KIARRA: BL hydronephrosis from ureteral obstruction from tumor burden. s/p stent. Monitor closely with diuresis #PE: Lovenox; renal function appropriate for dosing #Hypovolemic hyponatremia: improved #Metastatic cholangiocarcinoma: to bone, liver. Palliative chemo #Tachycardia: since admission. Suspect dry today, giving albumin #Goals: had another conversation with her today in regards to hospice. I do not feel that she will tolerate rehab given disease progression. Agreeable to hospice eval today #Diet: regular, 2 liter restriction #DVT ppx: Lovenox #Disp: may not qualify for SNF with Medicaid. May have to DC home with son; CM assisting Addendum: additional 30 min spent on direct patient care. Discussed advanced directives and hospice care Subjective: no overnight issues. No SOB Objective: Vital Signs Temp Pulse Resp BP Pulse Ox 36.4 C 115 H 16 121/85 H 98 08/11/18 07:37 08/11/18 07:37 08/11/18 07:37 08/11/18 07:37 08/11/18 07:37 Laboratory Results 08/10/18 05:00 08/11/18 06:00 08/10/18 08/11/18 08/12/18 05:59 05:59 05:59 Intake Total 590 470 Output Total 635 395 Balance -45 75 PT 22.2 SEC (12.0-15.0) H 08/01/18 13:40 INR 1.94 (0.83-1.16) H 08/01/18 13:40 - Time Spent With Patient Time Spent with Patient: greater than 35 minutes Time Spent with Patient: Greater than 35 minutes spent on this patients care, greater than 50% of time spent counseling, educating, and coordinating care regarding the above mentioned plan. - Physical Exam Constitutional: no apparent distress Eyes: PERRL Ears, Nose, Mouth, Throat: moist mucous membranes Cardiovascular: regular rate and rhythym, edema (+3 pitting edema to shins, BL) Respiratory: no respiratory distress, reduced air movement, No inspiratory crackles Gastrointestinal: normoactive bowel sounds Genitourinary: no bladder fullness Skin: warm Musculoskeletal: full muscle strength Neurologic: AAOx3, asterixes Psychiatric: interacting appropriately ICD10 Worksheet Patient Problems: Problems Problem Status Onset Anasarca Acute Left lower lobe pneumonia Acute Volume overload Acute
[2018-08-11] MEDS ORDERED: VANCOMYCIN 1 GM in NS 250 ML IV ONE (10:00)
[2018-08-11] MEDS ORDERED: VANCOMYCIN HCL/NORMAL SALINE 250 ML IV ONE (10:00)
[2018-08-11] MEDS: ENOXAPARIN 80 MG/0.8 ML SYR SC SCH ×2 (10:07→21:28)
[2018-08-11] MEDS: CALCIUM CARBONATE 500 MG TAB PO SCH ×2 (10:07→21:12)
[2018-08-11] MEDS: PROMETHAZINE HCL 25 MG/ML INJ IVP PRN ×2 (13:53→21:19)
--- NOTE | 2018-08-11 14:29 | SOAPPROG ---
SOAP Progress Note Assessment/Plan: Assessment/Plan: 1) Metastatic cholangiocarcinoma (C1 Cisplatin / Gemzar given 07/29/18) -Follow-up with Dr. Middleton as an outpatient vs. home with hospice -Recommend SNF/rehab to improve performance status as currently not a candidate for systemic therapy if she declines hospice care 2) Recent PE As per the CLOT trial, would continue with lifelong anticoagulation with lovenox or endoxaban (N Engl J Med 2018; [id number]). 3) Acute on chronic renal insufficiency [place] to be secondary to acute obstruction. Patient had bilateral ureteral stents placed August 06, 2018 with subsequent good urine output. Likely now has a new baseline creatinine of ~1.6. 4) Anasarca Likely multifactorial from decreased ambulation, hypoalbuminemia and renal failure. -recommend continuing diuresis with plan for 250-500cc/day net negative -olanzapine 5mg per day for appetite -up out of bed, perhaps compression stockings would be helpful 5) Staph Epi bacteremia Being followed by infectious disease currently on vancomycin - last day of vancomycin therapy 6) Chemotherapy induced pancytopenia Blood counts are currently stable to improved with no indications for transfusion or growth factor support Anticipate patient can be discharged to a shelter facility vs home with hospice care Travis Xavier 08/11/18 14:27 Subjective: Patient reports feeling well. Bumex was held yesterday and she was given albumin. She continues to struggle with decreased appetite. She denies any new symptoms, no pain. Objective: Vital Signs Temp Pulse Resp BP Pulse Ox 36.8 C 127 H 14 123/84 H 94 08/11/18 12:00 08/11/18 12:00 08/11/18 12:00 08/11/18 12:00 08/11/18 12:00 Laboratory Results 08/10/18 05:00 08/11/18 06:00 08/10/18 08/11/18 08/12/18 05:59 05:59 05:59 Intake Total 590 470 Output Total 635 395 Balance -45 75 PT 22.2 SEC (12.0-15.0) H 08/01/18 13:40 INR 1.94 (0.83-1.16) H 08/01/18 13:40 Physical examination: General: No acute distress appearing nontoxic appearing female with significant sarcopenia and edema HEENT: Pupils equal round reactive to light no scleral icterus or conjunctival pallor is appreciated, oral mucosa dry without any evidence of oral pharyngeal lesions. Cardiovascular: tachycardic rate regular rhythm without rubs thrills gallops or murmurs Chest: bronchial breath sounds - left posterior lung Extremities: Warm and well perfused with pitting edema up to the level of the sternum, 2+ in bilateral lower extremities/presacral edema is also present Neurologic: Cranial nerves II through XII are intact ICD10 Worksheet Patient Problems: Problems Problem Status Onset Anasarca Acute Left lower lobe pneumonia Acute Volume overload Acute
[2018-08-11] MEDS: LORazepam 2 MG/ML INJ IVP PRN ×2 (17:42→22:21)
[2018-08-11] MEDS: OLANZapine 5 MG TAB PO SCH (21:28)
[2018-08-11] MEDS: CYCLOBENZAPRINE 10 MG TAB PO PRN (21:28)
[2018-08-12] MEDS ORDERED: LORazepam 2 MG/ML INJ IVP ONE (01:44)
--- NOTE | 2018-08-12 08:27 | HOSPPROG ---
Hospitalist Progress Note Assessment/Plan: #Stap epidermidis bacteremia: related to line, which was pulled. Last Vanc dose tomorrow #Anasarca: multifactorial with hypoalbuminemia, cancer burden. Mild diastolic HF on echo. #KIARRA: BL hydronephrosis from ureteral obstruction from tumor burden. s/p stent. Monitor closely with diuresis -Cr up to 1.9; hold diuretics. Compression stockings #PE: Lovenox; renal function appropriate for dosing #Hypovolemic hyponatremia: improved #Metastatic cholangiocarcinoma: to bone, liver. Palliative chemo #Tachycardia: since admission and persistent despite albumin. Start BB #Diet: regular, 2 liter restriction #DVT ppx: Lovenox #Goals: I spoke with pt and son bedside again about hospice. She states she wants to focus on comfort/quality life and to be at home. Son reports rapid decline in past month. Plan is to discharge home with hospice. Rxs sent to [facility] here. Additionall direct patient care spent on advanced goals plannin min bedside , [id number] discussing hospice, MOST form, symptom management Subjective: no SOB Objective: Vital Signs Temp Pulse Resp BP Pulse Ox 36.9 C 125 H 16 124/84 H 99 08/12/18 04:00 08/12/18 04:00 08/12/18 04:00 08/12/18 04:00 08/12/18 04:00 Laboratory Results 08/10/18 05:00 08/12/18 04:50 08/11/18 08/12/18 08/13/18 05:59 05:59 05:59 Intake Total 470 0 Output Total 395 475 Balance 75 -475 PT 22.2 SEC (12.0-15.0) H 08/01/18 13:40 INR 1.94 (0.83-1.16) H 08/01/18 13:40 - Time Spent With Patient Time Spent with Patient: greater than 35 minutes Time Spent with Patient: Greater than 35 minutes spent on this patients care, greater than 50% of time spent counseling, educating, and coordinating care regarding the above mentioned plan. - Physical Exam Constitutional: no apparent distress Eyes: PERRL Ears, Nose, Mouth, Throat: moist mucous membranes Cardiovascular: regular rate and rhythym, edema (+3 pitting edema to kneees) Respiratory: no respiratory distress Gastrointestinal: normoactive bowel sounds, soft, non-tender abdomen Genitourinary: no bladder fullness Skin: warm Musculoskeletal: full muscle strength Neurologic: AAOx3, CN II-XII Intact Psychiatric: interacting appropriately ICD10 Worksheet Patient Problems: Problems Problem Status Onset Anasarca Acute Left lower lobe pneumonia Acute Volume overload Acute
[2018-08-12] MEDS: LORazepam 2 MG/ML INJ IVP PRN ×3 (09:28→21:44)
[2018-08-12] MEDS: METOPROLOL TARTRATE 25 MG TAB PO SCH ×2 (09:31→21:44)
[2018-08-12] MEDS: POTASSIUM CL 10 MEQ TAB PO SCH (09:32)
[2018-08-12] MEDS: ENOXAPARIN 80 MG/0.8 ML SYR SC SCH ×2 (09:33→21:44)
[2018-08-12] MEDS: CALCIUM CARBONATE 500 MG TAB PO SCH ×2 (09:33→21:44)
[2018-08-12] MEDS ORDERED: NS 1,000 ML IV SCH (11:30)
[2018-08-12] MEDS ORDERED: FAMOTIDINE 20 MG TAB PO SCH (21:00)
[2018-08-13] MEDS: PROMETHAZINE HCL 25 MG/ML INJ IVP PRN (01:28)
[2018-08-13] MEDS: oxyCODONE IR 5 MG TAB PO PRN (01:28)
[2018-08-13 09:14] VITALS: BP 119/85
[2018-08-13] MEDS: CALCIUM CARBONATE 500 MG TAB PO SCH (10:01)
[2018-08-13] MEDS: METOPROLOL TARTRATE 25 MG TAB PO SCH (10:01)
[2018-08-13] MEDS: LORazepam 2 MG/ML INJ IVP PRN (10:02)
[2018-08-13] MEDS: POTASSIUM CL 10 MEQ TAB PO SCH (10:02)
[2018-08-13] MEDS: ENOXAPARIN 80 MG/0.8 ML SYR SC SCH (10:08)
--- NOTE | 2018-08-13 13:23 | PDIAF ---
- Diagnosis Diagnosis: cholangiocarcinoma Code Status: Do Not Resuscitate - Medication Management Discharge Medications: Medications to Continue on Transfer Cyclobenzaprine [Flexeril 10 MG (*)] 10 mg PO TID PRN 08/01/18 [Last Taken 07/30] Docusate Sodium [Colace 100 MG (*)] 100 mg PO DAILY PRN 08/01/18 [Last Taken 07/10] Simethicone [GAS-X] 125 mg PO Q6 PRN 08/01/18 [Last Taken 07/31/18] LORazepam [Ativan] 1 mg PO Q6H PRN #30 tablet 08/12/18 [Last Taken Unknown] Ondansetron Odt [Zofran Odt 4 mg (*)] 4 mg PO Q4 PRN #30 tab 08/12/18 [Last Taken Unknown] Oxycodone HCl 5 mg PO Q6H PRN #30 capsule 08/12/18 [Last Taken Unknown] Enoxaparin [Lovenox 80 MG (*)] 80 mg SQ 10,22 #60 syr 08/13/18 [Last Taken Unknown] Discharge Medications: Refer to the Discharge Home Medication list for PRN reason. - Orders Services needed: Home Care, Registered Nurse Home Care Face to Face: I certify that this patient was under my care and that I had the required [id number] encounter meeting the encounter requirements on the discharge day. My findings support the fact that the patient is homebound as defined in Home Care Face to Face Continued: CMS Chapter 7 Medicare Benefits Manual 30.1.1 , The condition of the patient is such that there exists a normal inability to leave home and consequently, leaving home would require a considerable and taxing effort. Diet Recommendation: no restrictions on diet Diet Texture: Regular Texture Diet Wound Care Instructions: zinc cream daily. wound care order - Follow Up Care Current Providers and Referrals: NONE *PRIMARY CARE P,. [Primary Care Provider] - As per Instructions
--- NOTE | 2018-08-13 13:49 | ASMTLACE ---
LACE Length of stay for Answers: 7-13 days current admission Acuity / Level of Answers: Yes Care: Did the patient have an inpatient admission? Comorbidities - select Answers: Any tumor (including all that apply lymphoma or leukemia) Congestive heart failure Other Notes: Hx of PE; HTN # of Emergency department Answers: 1-2 visits in the last 6 months Score: 14 Date Signed: 08/13/2018 01:48 PM Electronically Signed By:Hanny Zuniga
--- NOTE | 2018-08-13 13:52 | ASMTDCNOTE ---
Case Management Discharge Discharge Order Complete? Answers: Yes Patient to Obtain Answers: via Family Medications Transportation Arranged Answers: Family/Friends Transport will Pick (Date 08/13/2018 02:00 PM & Time) Faxed Final Orders Answers: Yes Agency/Facility Transfer Answers: Yes Report Printed & Faxed to Receiving Agency Family Notified Answers: Yes Discharge Comments Notes: Pt being transported by her son to her home. [facility] will meet with her this afternoon. Date Signed: 08/13/2018 01:51 PM Electronically Signed By:Hanny Zuniga
--- NOTE | 2018-08-14 09:02 | ASDISCHSUM ---
Discharge Information Plan Status:Home with Home Health Medically Cleared to Leave:08/13/2018 Discharge Date:08/13/2018 02:30 PM D/C Disposition:Hospice Home ADT D/C Disposition:Home, Routine, Self-Care Projected Discharge Date:08/04/2018 11:00 AM Transportation at D/C:Family Discharge Delay Reason: Follow-Up Date:08/04/2018 11:00 AM Discharge Slot: Final Diagnosis: Placement Information Referral Type:*Hospice Referral ID:[id number] Provider Name:[facility] Address 1:[address] Phone Number: Address 2: Fax Number: [facility]:[place] Selection Factors: State:[place] Referral Type:Home Infusion Referral ID:[id number] [facility] Address 1:[address] Address 2: City:[place] Selection Factors: State:[place] Patient Contact Information Contact Name:ISABELLA Relationship:Fernandez Address: Home Phone: City: [facility] Phone: [facility] Code: Email: Financial Information Financial Class:Medicaid Primary Plan Desc:[employer] Primary Plan Number:[id number] Secondary Plan Desc: Secondary Plan Number: Assessment Information LACE LACE Length of stay for Answers: 7-13 days current admission Acuity / Level of Answers: Yes Care: Did the patient have an inpatient admission? Comorbidities - select Answers: Any tumor (including all that apply lymphoma or leukemia) Congestive heart failure Other Notes: Hx of PE; HTN # of Emergency department Answers: 1-2 visits in the last 6 months Score: 14 Date Signed: 08/13/2018 01:48 PM Electronically Signed By:Hanny Zuniga [facility] CM Progress Note CM Note CM Note Notes: Patient seen in am rounds. She has multiple medical issues with metastatic cancer and renal failure. She was recently at [facility] and was to go home with hospice however [facility] does not serve [place]. She seems to have a good understanding of her disease and prognosis. Per Dr. Long we will make appropriate hospice referrals at this time. Patient would benefit from walker, toilet seat elevator and questionable bathing seat.CM to follow. Plan: Home with hospice of choice. Date Signed: 08/02/2018 03:00 PM Electronically Signed By:Nicole Sparks RN [facility] Progress Note CM Note CM Note Notes: Dia from [facility] here to see patient: they've scheduled an informational session tomorrow 08/04 @ 1100 with patient, son, and DIL. Patient says that she has a comfortable bed and her son is working on getting her a walker and a toilet riser. I'm sure hospice can assist with DME, as well. Patient's physical address is [address] [place] [address], and we've provided [facility] with this information. Case Management will follow. Date Signed: 08/03/2018 02:40 PM Electronically Signed By:Sanjuana Moulton RN [facility] Progress Note CM Note CM Note Notes: Patient care reviewed in interdisciplinary rounds today. Opal and her family were meeting palliative care [facility] to have discussion regarding options for hospice and palliative care. See note. Per Dia, she will be back in tomorrow to see patient again. CM to follow. Plan Home with Hospice vs palliative care when medically cleared for discharge, Date Signed: 08/04/2018 03:06 PM Electronically Signed By:Nicole Sparks RN [facility] CM Progress Note CM Note CM Note Notes: Patient seen in interdisciplinary rounds. Per ID likely to treat Blood Cultures with daptomycin. Referal to [facility]. Patient revisited by palliative care and she declines at this time. CM to follow. Plan: Home with HHC and IV infusions at this point. Date Signed: 08/05/2018 02:22 PM Electronically Signed By:Nicole Sparks RN [facility] CM Progress Note CM Note CM Note Notes: Patient plan of care reviewed in interdisciplinary rounds. Slowly diuresing to preserve kidney function. She has poor intake and little output. Anasarca present. Son Wesley and DIL in room. Plan is to try to mobilize more fluid. Likely inpt next 2 days. Referral to [facility] as patient would benefit form HHC. Per patient and her son they would prefer palliative care at this time in addition to HHC. Continue IV antibiotics per ID. Continue therapies. Plan: HHC and infusion services at discharge with [facility] in place. Date Signed: 08/06/2018 03:00 PM Electronically Signed By:Nicole Sparks RN [facility] Progress Note CM Note CM Note Notes: Patient s/p bilateral ureter stents for diagnosis of hydronephrosis. Per ID just a few more doses of vancomycin. Post chemo dip in CBC noted. May get transfused. Plan of care remains home with HHC, Palliative care via [facility] and maybe home infusion services. CM to follow,. Plan: As outlined above. Date Signed: 08/08/2018 02:54 PM Electronically Signed By:Nicole Sparks RN [facility] Progress Note CM Note CM Note Notes: Patient plan of care reviewed in rounds. She was planning on home with HHC and palliative as the thought would be to pursue palliative chemo but not sure if palliative chemo would alleviate the symptoms of anasarca which she feels are most problematic for her. Will attempt to visit when her raj is present to clafiry plan of care as patient states she would rather be at home. CM to follow. Plan: TBD Date Signed: 08/09/2018 03:10 PM Electronically Signed By:Nicole Sparks RN [facility] CM Progress Note CM Note CM Note Notes: Per MD patient would now like to go to SNF Rehab. She has Medicaid. ULTC 100 done. Email to [employer] to perform screening. Patient was to go home with [facility] and Palliative care originally. Will attempt to visit with patient again when her son is present. CM to follow. Plan: TBD Date Signed: 08/10/2018 01:16 PM Electronically Signed By:Nicole Sparks RN Case Management Discharge Plan Note Case Management Discharge Discharge Order Complete? Answers: Yes Patient to Obtain Answers: via Family Medications Transportation Arranged Answers: Family/Friends Transport will Pick (Date 08/13/2018 02:00 PM & Time) Faxed Final Orders Answers: Yes Agency/Facility Transfer Answers: Yes Report Printed & Faxed to Receiving Agency Family Notified Answers: Yes Discharge Comments Notes: Pt being transported by her son to her home. [facility] will meet with her this afternoon. Date Signed: 08/13/2018 01:51 PM Electronically Signed By:Hanny Zuniga Intervention Information Intervention Type:*Incorrect Registration Date of Service:08/01/2018 12:49 PM Patient Type:Observation Staff Member:AMARILYS Espinosa Courtney Hours: Discipline: Severity: Comment:
== END 2018-08-13 14:30 | disposition home health service (06) | DRG 681 ==
LOC: OBSVTOIN 15:28 → F1N 16:11
PROVIDERS: ADMIT Internal Medicine; ATTEND Internal Medicine
DX: E88.09 Other disorders of plasma-protein metabolism, not elsewhere classified (principal); N13.30 Unspecified hydronephrosis; C23 Malignant neoplasm of gallbladder; N17.9 Acute kidney failure, unspecified; C78.7 Secondary malignant neoplasm of liver and intrahepatic bile duct; I26.99 Other pulmonary embolism without acute cor pulmonale; L89.312 Pressure ulcer of right buttock, stage 2; L89.892 Pressure ulcer of other site, stage 2; E46 Unspecified protein-calorie malnutrition; D61.810 Antineoplastic chemotherapy induced pancytopenia; E87.1 Hypo-osmolality and hyponatremia; T82.7XXA Infection and inflammatory reaction due to other cardiac and vascular devices, implants and grafts, initial encounter; R78.81 Bacteremia; B95.7 Other staphylococcus as the cause of diseases classified elsewhere; R60.1 Generalized edema; C79.51 Secondary malignant neoplasm of bone; C77.0 Secondary and unspecified malignant neoplasm of lymph nodes of head, face and neck; D64.9 Anemia, unspecified; I12.9 Hypertensive chronic kidney disease with stage 1 through stage 4 chronic kidney disease, or unspecified chronic kidney disease; R91.8 Other nonspecific abnormal finding of lung field; I27.81 Cor pulmonale (chronic); N18.9 Chronic kidney disease, unspecified; Z86.718 Personal history of other venous thrombosis and embolism; Z66 Do not resuscitate; Z51.5 Encounter for palliative care
CPT/HCPCS: 84484-PO; 96374; 97110-GO; 97116-GP; 97161-GP; 97164-GP; 97166-GO; 97530-GP; 97535-GO; C1758; C1769; C2625; J1170; J1650; J1956; J2060; J2250; J2550; J2704; J2765; J3010; J3370; P9041; P9047; Q9967